=== PATIENT | male | born 1965 | race Caucasian/White ===

== ENCOUNTER 2021-04-12 14:38 | Inpatient (IN) ==
[2021-04-12] MEDS ORDERED: dexAMETHasone**PF** 10 MG/ML VIAL IV ONE (15:11)
[2021-04-12] MEDS ORDERED: IPRATROPIUM BROMIDE/ALBUTEROL respimat INH INH STA (15:11)
[2021-04-12] MEDS ORDERED: SODIUM CHLORIDE 0.9% 1000ML 2,000 ML IV ONE (15:11)
[2021-04-12] MEDS ORDERED: ACETAMINOPHEN 1,000 MG/100 ML VIAL IV STA (15:11)
[2021-04-12 15:39] LABS: Hematocrit (blood only) 38.8 % (42-52); Hemoglobin 13.5 g/dL (14.0-18.0); Mean Corpuscular Hemoglobin 30.2 pg (25-34); Mean Corpuscular Hgb Conc 34.8 g/dL (32-36); Mean Corpuscular Volume 86.8 fL (80-100); Mean Platelet Volume 9.8 fL (7.4-10.4); Platelet Count 352 K/uL (130-400); RDW Coefficient of Variation 13.4 % (11.5-14.5); RDW Standard Deviation 42.9 fL (36.4-46.3); Red Blood Count 4.47 M/uL (4.7-6.1); White Blood Count 6.43 K/uL (4.8-10.8)
[2021-04-12 15:40] LABS: INR 1.2 (0.9-1.1); Prothrombin Time 11.9 Seconds (9.0-12.0)
--- NOTE | 2021-04-12 15:47 | XRay Report ---
XR chest 1V portable HISTORY: Atypical Chest Pain COMPARISON: None. FINDINGS: There are low lung volumes. The heart is mildly enlarged. No pleural effusions. No pneumoth orax. There are hazy peripheral airspace opacities seen within the bilateral mid to lower lung zones consistent with a moderate viral pneumonia. IMPRESSION: Bilateral hazy airspace opacities within the mid to lower lung zones consistent with a viral pneumoni a. ACT 112: Negative or not required by law. Electronically signed by: Jorge Snyder M.D. 04/12/2021 3:46 PM
[2021-04-12 16:10] LABS: Alanine Aminotransferase 31 (12-78); Albumin Globulin Ratio 0.6 (0.9-2); Albumin Level 2.4 gm/dl (3.4-5.0); Alkaline Phosphatase 59 U/L (45-117); Aspartate Aminotransferase 31 U/L (15-37); BUN Creatinine Ratio 21.6 (10-20); Bilirubin,Total 0.8 mg/dl (0.2-1); Blood Urea Nitrogen 25 mg/dl (7-18); Calcium 8.8 mg/dl (8.5-10.1); Carbon Dioxide 20 mmol/L (21-32); Chloride 93 mmol/L (98-107); Creatinine Clr Calc Pharmacy 57.9 ml/min; Est GFR (African American) 81.7 ml/min; Est GFR (Non-African American) 70.5 ml/min; Globulin 4.2 gm/dl (2.5-4.0); Glucose 459 mg/dl (70-99); Lipase 169 U/L (73-393); Magnesium 2.7 mg/dl (1.8-2.4); NT Pro B Type Natriuretic Pept 161 pg/ml (0-900); Phosphorus 3.1 mg/dl (2.5-4.9); Sodium 129 mmol/L (136-145); Total Protein 6.6 gm/dl (6.4-8.2); Troponin I < 0.015 ng/ml (0-0.045)
[2021-04-12 16:19] LABS: Basophils # (auto) 0.01 K/uL (0-0.2); Basophils % (auto) 0.2 %; Echinocytes 1+; Eosinophils # (auto) 0.01 K/uL (0-0.5); Eosinophils % (auto) 0.2 %; Immature Granulocytes # (auto) 0.01 K/uL (0.00-0.02); Immature Granulocytes % (auto) 0.2 %; Lymphocytes % (auto) 7.8 %; Monocytes # (auto) 0.13 K/uL (0.11-0.59); Neutrophils # (auto) 5.77 K/uL (1.4-6.5); Neutrophils % (auto) 89.6 %
[2021-04-12 16:23] LABS: Beta-Hydroxybutyrate 41.78 mg/dl (0.2-2.81)
[2021-04-12 16:28] LABS: Influenza A virus by PCR Negative (Neg); Influenza B virus by PCR Negative (Neg); RSV by PCR Negative (Neg)
[2021-04-12 16:38] LABS: SARS CoV2 RNA(COVID-19) InHosp POSITIVE (Negative)
--- NOTE | 2021-04-12 16:53 | Emergency Department Note ---
Impression & Plan Acute respiratory failure with hypoxia, Pneumonia due to COVID-19 virus, Hyperglycemia due to type 2 diabetes mellitus, Dehydration ED Provider Note NAME: GREY VILLA AGE: 55 SEX: M ARRIVES VIA: Walk-In INFORMANT: Patient ED PROVIDER(S): Napoleon Bosch MD CHIEF COMPLAINT: Shortness of breath; Referred. PLAN: Disposition: Admit MEDICAL DECISION MAKING: The patient is a pleasant 55-year-old gentleman with a past medical history of NIDDM 2 who presents to the emergency department referred from his outpatient providers office for worsening shortness of breath and hypoxia in the setting of being diagnosed with COVID-19. 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 Reports feeling feverish, body aches, nausea. He denies diarrhea. He is a non-smoker. He is not vaccinated for COVID-19. He did get his flu vaccine last week prior to the onset of his symptoms. On arrival the patient is uncomfortable and ill-appearing but no acute distress, afebrile with O2 saturation 79% on room air and tachypneic in the upper 20s. O2 saturation did improve to the low mid 90s on Oxy mask. Patient appears clinically dry. He has intermittent wheezes and rhonchi. Abdomen is benign. EKG without overt acute ischemia. CXR with bilateral airspace opacities c/w viral PNA. WBC and platelets wnl. H/H 13.5/38.8 without prior for comparison. Glucose 459 but with Chemistry without significant acidosis with bicarbonate of 20. BHB 40s however VBG without acidemia. Sodium corrects to 135-138. Otherwise, electrolytes without significant abnormalities. Serum Osms 297 and so HHS unlikely. LFTs without significant abnormality. Troponin negative/undetectable. Lipase is not elevated. Covid-19 PCR is positive. Repeat BSG after IVF hydration improved to 370s. HHS and DKA unlikely at this time. Results suggest ketosis without acidosis in the setting of dehydration. Further glycemic management per admitting team. Nilay Paula PAC, with Dr. Gino Pemberton hospitalist who will evaluate the patient for admission. Triage Nursing notes reviewed and agree them. Prior medical records reviewed Vital Signs: reviewed and remarkable for hypoxia, tachypnea. Differential diagnosis: Reactive airway disease, pneumonia, pneumothorax, COPD, CHF, infections, cardiac ischemia, pulmonary embolism, musculoskeletal, gastrointestinal, as well as other pathologies. ER treatment provided: See below. Diagnostics interpreted by me: ECG: NSR, 88 bpm, no ectopy, no overt ST elevation or depression. Cardiac Monitoring: An order for continuous cardiac monitoring was placed and demonstrated NSR, 88 bpm, no ectopy. Laboratory studies: See below Imaging studies: See below Consultation(s): Nilay Paula PAC, with Dr. Gino Pemberton hospitalist who will evaluate the patient for admission. HPI: The patient is a pleasant 55-year-old gentleman with a past medical history of NIDDM 2 who presents to the emergency department referred from his outpatient providers office for worsening shortness of breath and hypoxia in the setting of being diagnosed with COVID-19. 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 Reports feeling feverish, body aches, nausea. He denies diarrhea. He is a non-smoker. He is not vaccinated for COVID-19. He did get his flu vaccine last week prior to the onset of his symptoms. ROS: See above HPI for pertinent positives & negatives. A total of 10 systems reviewed and were otherwise negative. PAST MEDICAL HISTORY:See Below PAST SURGICAL HISTORY:See Below FAMILY HISTORY:See Below SOCIAL HISTORY:See Below HOME MEDICATIONS:See Below ALLERGIES:See Below VITALS:See Below PHYSICAL EXAMINATION: GENERAL: Awake, alert, ill-appearing, in no distress HENT: Normocephalic, atraumatic. Oropharynx with dry mucous membranes and other romero unremarkable. EYES: Normal conjunctiva. Sclera non-icteric. NECK: Supple. No nuchal rigidity. FROM. No JVD. RESPIRATORY: Intermittent wheezes and rhonchi. Mild increased WOB but in NAD. CARDIAC: Regular rate, normal rhythm. Extremities warm and well perfused. Pulses equal. ABDOMEN: Soft, non-distended. No tenderness to palpation. No rebound or guarding. No masses. RECTAL: Deferred. MUSCULOSKELETAL: Chest examination reveals no tenderness. The back is symmetrical on inspection without obvious abnormality. There is no CVA tenderness to palpation. No joint edema. LOWER EXTREMITIES: Calves are equal size bilaterally and non-tender. No edema. No discoloration. NEURO: Normal sensorium. No sensory or motor deficits noted. SKIN: No rash or jaundice noted. ED COURSE: Critical Care: I have personally spent greater than 55 minutes of critical care time in the direct management of this patient. This includes bedside care, interpretation of diagnostic studies, and testing, discussion with consultants, patient, and family members, and other required patient management activities. This 55 minutes is in excess of all separately billable procedures. 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 Beliefs That Will Affect Care: None Current Living Situation: Alone Other Information That Helps Us Care for You: No Feels Safe at Home: Yes Assistive Devices: Glasses Home Meds Home Medications Medication Instructions Recorded Confirmed albuterol sulfate 90 mcg/actuation 2 puff INHALATION DAILY 04/12/21 04/12/21 aerosol inhaler glyburide 5 mg tablet 5 mg PO DAILY 04/12/21 04/12/21 lisinopril 5 mg tablet 5 mg PO DAILY 04/12/21 04/12/21 metformin 1,000 mg tablet 1,000 mg PO DAILY 04/12/21 04/12/21 metoprolol tartrate 25 mg tablet 12.5 mg PO BID 04/12/21 04/12/21 Results & Data (ED) Vital Signs Vital Signs - 24 hr 04/12/21 14:59 04/12/21 15:01 04/12/21 15:08 Temperature 36.4 C L Temperature Source Oral Pulse Rate 90 90 85 Pulse Rate from SpO2 Sensor 91 H Pulse Rhythm Regular Pulse Strength Normal Respiratory Rate 24 31 H 25 H Respiratory Effort / Characteristics Spontaneous Respiratory Depth Normal Respiratory Pattern Regular Blood Pressure 130/88 Blood Pressure Mean 102 Blood Pressure Position Semi-fowlers Pulse Oximetry 95 79 L Oxygen Delivery Method Room Air Oxymask Oxygen Flow Rate 0 Sepsis New/Unexplained Change in Mental Status No Sepsis Action Taken by Nursing No Action Required Oxygen Flow Rate - Titration 4 Pulse Oximetry Post Tiitration 98 04/12/21 15:30 04/12/21 16:00 04/12/21 16:30 Temperature Temperature Source Pulse Rate 85 86 76 Pulse Rate from SpO2 Sensor 86 80 79 Pulse Rhythm Pulse Strength Respiratory Rate 31 H 19 32 H Respiratory Effort / Characteristics Respiratory Depth Respiratory Pattern Blood Pressure 132/85 125/83 108/74 Blood Pressure Mean 100 97 85 Blood Pressure Position Pulse Oximetry 98 96 94 Oxygen Delivery Method Oxygen Flow Rate Sepsis New/Unexplained Change in Mental Status Sepsis Action Taken by Nursing Oxygen Flow Rate - Titration Pulse Oximetry Post Tiitration 04/12/21 17:00 Temperature Temperature Source Pulse Rate 77 Pulse Rate from SpO2 Sensor 77 Pulse Rhythm Pulse Strength Respiratory Rate 29 H Respiratory Effort / Characteristics Respiratory Depth Respiratory Pattern Blood Pressure 110/70 Blood Pressure Mean 83 Blood Pressure Position Pulse Oximetry 98 Oxygen Delivery Method Oxygen Flow Rate Sepsis New/Unexplained Change in Mental Status Sepsis Action Taken by Nursing Oxygen Flow Rate - Titration Pulse Oximetry Post Tiitration Laboratory Data Attestation: I reviewed the patient's lab results. Result diagrams: 04/12/21 15:20 04/12/21 18:22 Lab Results 04/12/21 04/12/21 04/12/21 Range/Units 15:20 15:20 15:20 WBC 6.43 (4.8-10.8) K/uL RBC 4.47 L (4.7-6.1) M/uL Hgb 13.5 L (14.0-18.0) g/dL Hct 38.8 L (42-52) % MCV 86.8 (80-100) fL MCH 30.2 (25-34) pg MCHC 34.8 (32-36) g/dL RDW Std Deviation 42.9 (36.4-46.3) fL RDW Coeff of Chet 13.4 (11.5-14.5) % Plt Count 352 (130-400) K/uL MPV 9.8 (7.4-10.4) fL Immature Gran % (Auto) 0.2 % Neut % (Auto) 89.6 % Lymph % (Auto) 7.8 % [place] % (Auto) 2.0 % Eos % (Auto) 0.2 % Baso % (Auto) 0.2 % Neut # (Auto) 5.77 (1.4-6.5) K/uL Lymph # (Auto) 0.50 L (1.2-3.4) K/uL [place] # (Auto) 0.13 (0.11-0.59) K/uL Eos # (Auto) 0.01 (0-0.5) K/uL Baso # (Auto) 0.01 (0-0.2) K/uL Immature Gran # (Auto) 0.01 (0.00-0.02) K/uL Echinocytes 1+ PT 11.9 (9.0-12.0) Seconds INR 1.2 H (0.9-1.1) VBG pH (7.36-7.41) VBG pCO2 (38-50) mmHg VBG pO2 mmHg VBG HCO3 mmol/L VBG O2 Saturation % VBG Base Excess mEq/L Barometric Pressure mm/Hg Sodium 129 L (136-145) mmol/L Potassium 4.0 (3.5-5.1) mmol/L Chloride 93 L (98-107) mmol/L Carbon Dioxide 20 L (21-32) mmol/L Anion Gap 16.0 H (3-11) BUN 25 H (7-18) mg/dl Creatinine 1.16 (0.6-1.4) mg/dl Est Cr Clr Drug Dosing 57.9 ml/min Est GFR ( Amer) 81.7 ml/min Est GFR (Non-Af Amer) 70.5 ml/min BUN/Creatinine Ratio 21.6 H (10-20) Glucose 459 H* (70-99) mg/dl POC Glucose (70-99) mg/dl Osmolality (280-300) mOsm/kg Calcium 8.8 (8.5-10.1) mg/dl Phosphorus 3.1 (2.5-4.9) mg/dl Magnesium 2.7 H (1.8-2.4) mg/dl Total Bilirubin 0.8 (0.2-1) mg/dl AST 31 (15-37) U/L ALT 31 (12-78) Alkaline Phosphatase 59 (45-117) U/L Troponin I < 0.015 (0-0.045) ng/ml C-Reactive Protein 21.80 H (0-0.29) mg/dl NT-Pro-B Natriuret Pep 161 (0-900) pg/ml Total Protein 6.6 (6.4-8.2) gm/dl Albumin 2.4 L (3.4-5.0) gm/dl Globulin 4.2 H (2.5-4.0) gm/dl Albumin/Globulin Ratio 0.6 L (0.9-2) Lipase 169 (73-393) U/L Beta-Hydroxybutyric Acd 41.78 H (0.2-2.81) mg/dl SARS-CoV-2 (PCR) (Negative) Influenza Type A (PCR) (Neg) Influenza Type B (PCR) (Neg) RSV (RT-PCR) (Neg) 04/12/21 04/12/21 04/12/21 Range/Units 15:20 15:20 16:54 WBC (4.8-10.8) K/uL RBC (4.7-6.1) M/uL Hgb (14.0-18.0) g/dL Hct (42-52) % MCV (80-100) fL MCH (25-34) pg MCHC (32-36) g/dL RDW Std Deviation (36.4-46.3) fL RDW Coeff of Chet (11.5-14.5) % Plt Count (130-400) K/uL MPV (7.4-10.4) fL Immature Gran % (Auto) % Neut % (Auto) % Lymph % (Auto) % [place] % (Auto) % Eos % (Auto) % Baso % (Auto) % Neut # (Auto) (1.4-6.5) K/uL Lymph # (Auto) (1.2-3.4) K/uL [place] # (Auto) (0.11-0.59) K/uL Eos # (Auto) (0-0.5) K/uL Baso # (Auto) (0-0.2) K/uL Immature Gran # (Auto) (0.00-0.02) K/uL Echinocytes PT (9.0-12.0) Seconds INR (0.9-1.1) VBG pH 7.42 H (7.36-7.41) VBG pCO2 34 L (38-50) mmHg VBG pO2 44 mmHg VBG HCO3 21 mmol/L VBG O2 Saturation 79.3 % VBG Base Excess -2.7 mEq/L Barometric Pressure 729.2 mm/Hg Sodium (136-145) mmol/L Potassium (3.5-5.1) mmol/L Chloride (98-107) mmol/L Carbon Dioxide (21-32) mmol/L Anion Gap (3-11) BUN (7-18) mg/dl Creatinine (0.6-1.4) mg/dl Est Cr Clr Drug Dosing ml/min Est GFR ( Amer) ml/min Est GFR (Non-Af Amer) ml/min BUN/Creatinine Ratio (10-20) Glucose (70-99) mg/dl POC Glucose (70-99) mg/dl Osmolality 297 (280-300) mOsm/kg Calcium (8.5-10.1) mg/dl Phosphorus (2.5-4.9) mg/dl Magnesium (1.8-2.4) mg/dl Total Bilirubin (0.2-1) mg/dl AST (15-37) U/L ALT (12-78) Alkaline Phosphatase (45-117) U/L Troponin I (0-0.045) ng/ml C-Reactive Protein (0-0.29) mg/dl NT-Pro-B Natriuret Pep (0-900) pg/ml Total Protein (6.4-8.2) gm/dl Albumin (3.4-5.0) gm/dl Globulin (2.5-4.0) gm/dl Albumin/Globulin Ratio (0.9-2) Lipase (73-393) U/L Beta-Hydroxybutyric Acd (0.2-2.81) mg/dl SARS-CoV-2 (PCR) POSITIVE A* (Negative) Influenza Type A (PCR) Negative (Neg) Influenza Type B (PCR) Negative (Neg) RSV (RT-PCR) Negative (Neg) 04/12/21 Range/Units 17:15 WBC (4.8-10.8) K/uL RBC (4.7-6.1) M/uL Hgb (14.0-18.0) g/dL Hct (42-52) % MCV (80-100) fL MCH (25-34) pg MCHC (32-36) g/dL RDW Std Deviation (36.4-46.3) fL RDW Coeff of Chet (11.5-14.5) % Plt Count (130-400) K/uL MPV (7.4-10.4) fL Immature Gran % (Auto) % Neut % (Auto) % Lymph % (Auto) % [place] % (Auto) % Eos % (Auto) % Baso % (Auto) % Neut # (Auto) (1.4-6.5) K/uL Lymph # (Auto) (1.2-3.4) K/uL [place] # (Auto) (0.11-0.59) K/uL Eos # (Auto) (0-0.5) K/uL Baso # (Auto) (0-0.2) K/uL Immature Gran # (Auto) (0.00-0.02) K/uL Echinocytes PT (9.0-12.0) Seconds INR (0.9-1.1) VBG pH (7.36-7.41) VBG pCO2 (38-50) mmHg VBG pO2 mmHg VBG HCO3 mmol/L VBG O2 Saturation % VBG Base Excess mEq/L Barometric Pressure mm/Hg Sodium (136-145) mmol/L Potassium (3.5-5.1) mmol/L Chloride (98-107) mmol/L Carbon Dioxide (21-32) mmol/L Anion Gap (3-11) BUN (7-18) mg/dl Creatinine (0.6-1.4) mg/dl Est Cr Clr Drug Dosing ml/min Est GFR ( Amer) ml/min Est GFR (Non-Af Amer) ml/min BUN/Creatinine Ratio (10-20) Glucose (70-99) mg/dl POC Glucose 370 H* (70-99) mg/dl Osmolality (280-300) mOsm/kg Calcium (8.5-10.1) mg/dl Phosphorus (2.5-4.9) mg/dl Magnesium (1.8-2.4) mg/dl Total Bilirubin (0.2-1) mg/dl AST (15-37) U/L ALT (12-78) Alkaline Phosphatase (45-117) U/L Troponin I (0-0.045) ng/ml C-Reactive Protein (0-0.29) mg/dl NT-Pro-B Natriuret Pep (0-900) pg/ml Total Protein (6.4-8.2) gm/dl Albumin (3.4-5.0) gm/dl Globulin (2.5-4.0) gm/dl Albumin/Globulin Ratio (0.9-2) Lipase (73-393) U/L Beta-Hydroxybutyric Acd (0.2-2.81) mg/dl SARS-CoV-2 (PCR) (Negative) Influenza Type A (PCR) (Neg) Influenza Type B (PCR) (Neg) RSV (RT-PCR) (Neg) Administered Medications Benzonatate (Benzonatate 100 Mg Capsule) 100 mg PO TID [facility] Stop: 05/12/21 21:29 Last Admin: 04/12/21 22:12 Dose: 100 mg Documented by: [id number] Guaifenesin (Guaifenesin 600 Mg Tabcr) 1,200 mg PO Q12 SUHA Stop: 05/12/21 21:29 Last Admin: 04/12/21 22:13 Dose: 1,200 mg Documented by: [id number] Potassium Chloride/Sodium Chloride (Normal Saline W/20 Meq Kcl) 20 meq in 1,000 mls @ 150 mls/hr IV .Q6H40M [facility] Stop: 05/12/21 20:14 Last Admin: 04/12/21 22:57 Dose: 150 mls/hr Documented by: [id number] Insulin Human Regular 250 (units/ Sodium Chloride) 250 mls @ 2.3 mls/hr IV .Q24H [facility]; Protocol Stop: 05/12/21 22:29 Last Admin: 04/12/21 23:09 Dose: 2.3 units/hr, 2.3 mls/hr Documented by: [id number] Cosigned by: [id number] Sodium Chloride (Sodium Chloride 0.9% 10ml Flush) 30 ml IV DAILY@2100 SUHA Stop: 04/16/21 21:01 Last Admin: 04/12/21 20:30 Dose: 30 ml Documented by: [id number] Discontinued Medications Albuterol (Ipratropium [place]/Albuterol Respimat Inh) 2 puffs INH NOW STA Stop: 04/12/21 15:12 Last Admin: 04/12/21 15:55 Dose: 2 puffs Documented by: [id number] Dexamethasone Sodium Phosphate (DexamethasonePf 10 Mg/Ml Vial) 10 mg IV NOW ONE Stop: 04/12/21 15:12 Last Admin: 04/12/21 15:54 Dose: 10 mg Documented by: [id number] Sodium Chloride (Nss 1000ml) 2,000 mls @ 999 mls/hr IV .Q2H1M ONE Stop: 04/12/21 17:11 Last Infusion: 04/12/21 17:19 Dose: 0 mls/hr Documented by: [id number] Admin: 04/12/21 15:55 Dose: 999 mls/hr Documented by: [id number] Acetaminophen (Ofirmev) 1,000 mg in 100 mls @ 400 mls/hr IV NOW STA Stop: 04/12/21 15:25 Last Infusion: 04/12/21 16:20 Dose: 0 mls/hr Documented by: [id number] Admin: 04/12/21 15:54 Dose: 400 mls/hr Documented by: [id number] Remdesivir 200 mg/ Sodium (Chloride) 250 mls @ 125 mls/hr IV ONE ONE; Protocol Stop: 04/12/21 19:59 Last Infusion: 04/12/21 20:30 Dose: 0 mls/hr Documented by: [id number] Admin: 04/12/21 18:30 Dose: 125 mls/hr Documented by: [id number] Insulin Human Regular 7 units/ (Syringe) 7 mls @ 30 mls/min IV NOW ONE Stop: 04/12/21 17:46 Last Admin: 04/12/21 18:09 Dose: 30 mls/min Documented by: [id number] Cosigned by: [id number] Insulin Human Regular 2.5 (units/ Syringe) 2.5 mls @ 30 mls/min IV NOW ONE Stop: 04/12/21 22:31 Last Admin: 04/12/21 22:59 Dose: 30 mls/min Documented by: [id number] Cosigned by: [id number] Insulin Aspart (Insulin Aspart Per Unit) 0 units SC ACHS SUHA Stop: 05/12/21 17:44 Last Admin: 04/12/21 19:42 Dose: 22 units Documented by: [id number] Cosigned by: [id number] Insulin Human NPH (Novolin-N (Nph) Per Unit Charge) 25 units SQ ONE ONE Stop: 04/12/21 18:01 Last Admin: 04/12/21 19:43 Dose: 25 units Documented by: [id number] Cosigned by: [id number] Imaging Data Radiologist's Impression: Chest X-Ray 04/12/21 15:10 XR chest 1V portable HISTORY: Atypical Chest Pain COMPARISON: None. FINDINGS: There are low lung volumes. The heart is mildly enlarged. No pleural effusions. No pneumothorax. There are hazy peripheral airspace opacities seen within the bilateral mid to lower lung zones consistent with a moderate viral pneumonia. IMPRESSION: Bilateral hazy airspace opacities within the mid to lower lung zones consistent with a viral pneumonia. ACT 112: Negative or not required by law. Electronically signed by: Jorge Snyder M.D. 04/12/2021 3:46 PM Discharge Plan Visit Data Chief Complaint: Shortness of Breath/Dyspnea Stated Complaint: SOB, FEVER, COVID+ ED Provider: Napoleon Bosch Discharge Problem: Acute respiratory failure with hypoxia, Pneumonia due to COVID-19 virus, Hyperglycemia due to type 2 diabetes mellitus, Dehydration Patient Disposition: Admitted As Inpatient Discharge Instructions Interventions: ED Discharge Assessment Last Done: 04/12/21 20:31 Discharge Problem: Hyperglycemia due to type 2 diabetes mellitus Qualifiers: Diabetes mellitus roasterman insulin use: without fdc use Qualified Code(s): E11.65 - Type 2 diabetes mellitus with hyperglycemia
[2021-04-12 17:07] LABS: Base Excess VBG -2.7 mEq/L; Oxygen Saturation VBG 79.3 %; pH VBG 7.42 (7.36-7.41)
--- NOTE | 2021-04-12 17:18 | History & Physical Report ---
Date of Service April 12, 2021 Assessment & Plan (1) Pneumonia due to COVID-19 virus: (2) Hyperglycemia due to type 2 diabetes mellitus: (3) Hyponatremia: (4) Dehydration: (5) HTN (hypertension): (6) HLD (hyperlipidemia): (7) CAD (coronary artery disease): (8) DVT prophylaxis: Plan: Patient will be admitted to telemetry, will be given dexamethasone IV as well as remdesivir, oxygen to maintain sats between 90-94%, he will be given IV fluids, DVT prophylaxis with subcu Lovenox, continue outpatient medications where appropriate, albuterol inhalers, corrected sodium is 135. Patient will be placed on twice daily Lantus with every 4 hour sliding scale and an insulin bolus short acting was given. Patient was counseled to prone. History of Present Illness Chief Complaint: SOB Primary Care Provider: NO PCP 55-year-old gentleman with a past medical history of NIDDM 2 who presents emergency department referred from his outpatient providers office for worsening shortness of breath and hypoxia in the setting of being diagnosed with COVID- 19. 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 Reports feeling feverish, body aches, nausea. He denies diarrhea. He is a non-smoker. He is not vaccinated for COVID-19. He did get his flu vaccine last week prior to the onset of his symptoms and after that got symptoms of flu. In the ER he was 79% on room air and tachypneic in the upper 20s. O2 saturation did improve to the low mid 90s on oxygen mask. Patient appears clinically dry. He was found to have a sodium of 128 which corrects to 135 and a bicarbonate of 20. His blood sugar was 459. He was given Tylenol albuterol dexamethasone and 2 L of fluid in the ER. Patient notes nausea and vomiting for couple days. Patient did not have an appetite for days, and los s senses of taste and smell. Patient at work was also positive for Covid. He was not taking his blood sugar medications for 2 weeks. Past medical historyType 2 diabetes, Asthma, CAD c Stent, HTN, HLD Past surgical historyHeart Stent. Social historyWorks at the [employer], single, No T/D/Alcohol Family historyFather c Heart Disease, CABG, Mother Healthy, Brother c DM, Sister healthy Meds-Lisinopril, and as below Home Medications Medication Instructions Recorded Confirmed Type albuterol sulfate 90 mcg/actuation 2 puff INHALATION DAILY 04/12/21 04/12/21 History aerosol inhaler glyburide 5 mg tablet 5 mg PO DAILY 04/12/21 04/12/21 History lisinopril 5 mg tablet 5 mg PO DAILY 04/12/21 04/12/21 History metformin 1,000 mg tablet 1,000 mg PO DAILY 04/12/21 04/12/21 History metoprolol tartrate 25 mg tablet 12.5 mg PO BID 04/12/21 04/12/21 History Past Med/Surg History Social History Smoking Status: Never smoker Preferred Language: [place] Feels Safe at Home: Yes Physical Exam Physical Exam: ROS-No Headache, No Visual Changes, +Nausea, +Vomiting, very thirsty, no Fever, positive chills, No Neck Pain, positive Stiffness, No Chest Pain, No Palpitations, positive SOB, positive NEGRETE, positive cough, No Sputum, No Wheezing, No Abdominal Pain, No Diarrhea, No Hematemesis, No Hemoptysis, No Unexpected Weight Loss, No Flank pain, No Melena, No Hematochezia, No Frequency, No Urgency, No Burning, No Hematuria, No Rashes, No Diaphoresis. Appetite is Normal Physical Exam Gen-AAO x 3, NAD, Afebrile Head-NCAT, EOMI, PERRLA, Anicteric Sclera, No Posterior Pharyngeal Erythema Neck-Supple, No JVD, No Thyromegaly, No Masses, No LAD, No Bruits Lungs-Clear to Auscultation Bilaterally, No Rales, No Rhonchi, No Wheezing, No Crepitus Chest-No S4, +S1, +S2, No S3, No Murmurs, No Rubs, No Gallops, No Ectopy Abdomen-Soft, Bowel Sounds Present, Non Tender, Non Distended, No Hepatomegaly, No Splenomegaly, No Palpable Masses, No Rebound, No Rigidity, No Guarding Musculoskeletal-Full Range of Motion Bilaterally, No CVAT Extremities-No Cyanosis, No Clubbing, No Edema Nuero-Cranial Nerves II-XII grossly intact, Motor WNL, DTRs WNL, Strength WNL, Non Focal Psych-Normal Mood Results & Data Results & Data ([facility]) Vital Signs (Past 12 Hours) Vital Signs Temp Pulse Resp BP Pulse Ox 04/12/21 15:08 36.4 C L 85 25 H 130/88 79 L Laboratory Results Height/Weight/Isolation Height 5 ft 3 in Weight 62.9 kg Isolation Type Airborne Precautions Chemistry 04/12/21 15:20 Sodium 129 L Potassium 4.0 Chloride 93 L Carbon Dioxide 20 L Anion Gap 16.0 H BUN 25 H Creatinine 1.16 Glucose 459 H* Diagnostic Findings CXR-Bilateral hazy airspace opacities within the mid to lower lung zones consistent with a viral pneumonia. Code Status & VTE Plan Code Status Full
[2021-04-12] MEDS ORDERED: GLUCOSE 40% GEL 15 GM TUBE PO PRN (17:20)
[2021-04-12] MEDS ORDERED: PHARMACY GLYCEMIC MGMT CONSULT PRN (17:20)
[2021-04-12] MEDS ORDERED: DEXTROSE 50% 50 ML SYRINGE IV PRN (17:20)
[2021-04-12] MEDS ORDERED: GLUCOSE 10 TABS/TUBE PO PRN (17:20)
[2021-04-12] MEDS ORDERED: GLUCAGON FOR INJ 1 MG VIAL SQ PRN (17:20)
[2021-04-12] MEDS ORDERED: INSULIN ASPART PER UNIT SC STA (17:21)
[2021-04-12] MEDS ORDERED: INSULIN HUMAN REGULAR PER UNIT 7 UNITS in SYRINGE 6.93 ML IV ONE ×2 (17:45→22:00)
[2021-04-12] MEDS ORDERED: NovoLIN-N (NPH) PER UNIT CHARGE SQ ONE (18:00)
[2021-04-12] MEDS ORDERED: REMDESIVIR 200 MG in SODIUM CHLORIDE 0.9% 210 ML IV ONE (18:00)
[2021-04-12 18:51] LABS: BUN Creatinine Ratio 22.2 (10-20); Calcium 7.9 mg/dl (8.5-10.1); Creatinine Clr Calc Pharmacy 65.9 ml/min; Est GFR (African American) 95.5 ml/min; Est GFR (Non-African American) 82.4 ml/min; Potassium 3.9 mmol/L (3.5-5.1)
[2021-04-12 19:03] LABS: Beta-Hydroxybutyrate 33.51 mg/dl (0.2-2.81)
[2021-04-12] MEDS: INSULIN ASPART PER UNIT SC SCH (19:42)
[2021-04-12] MEDS: SODIUM CHLORIDE 0.9% 10ML FLUSH IV SCH (20:30)
[2021-04-12] MEDS ORDERED: ONDANSETRON INJ 2 MG/ML 2 ML VIAL IV PRN (20:56)
[2021-04-12] MEDS ORDERED: LANTUS PER UNIT CHARGE SQ SCH (21:00)
[2021-04-12] MEDS ORDERED: INSULIN ASPART PER UNIT SC SCH (21:00)
[2021-04-12] MEDS ORDERED: STAT IV Infusion **Titration per Protocol STA (22:10)
[2021-04-12] MEDS ORDERED: INSULIN PROTOCOL GOAL RANGE ONE (22:10)
[2021-04-12] MEDS ORDERED: SEVERE STRESS LEVEL ONE (22:10)
[2021-04-12] MEDS: BENZONATATE 100 MG CAPSULE PO SCH (22:12)
[2021-04-12] MEDS: guaiFENesin 600 MG TABCR PO SCH (22:13)
[2021-04-12] MEDS ORDERED: INSULIN REGULAR 250 UNITS in SODIUM CHLORIDE 0.9% 247.5 ML IV SCH (22:30)
[2021-04-12] MEDS ORDERED: INSULIN HUMAN REGULAR PER UNIT 2.5 UNITS in SYRINGE 2.475 ML IV ONE (22:30)
[2021-04-12] MEDS: NSS + 20MEQ KCL 20 MEQ/1,000 ML BAG IV SCH (22:57)
[2021-04-13] MEDS ORDERED: INSULIN ASPART PER UNIT SC SCH
[2021-04-13 00:44] LABS: BUN Creatinine Ratio 22.6 (10-20); Calcium 8.3 mg/dl (8.5-10.1); Est GFR (African American) 92.2 ml/min; Est GFR (Non-African American) 79.5 ml/min; Potassium 3.4 mmol/L (3.5-5.1)
[2021-04-13 01:02] LABS: Beta-Hydroxybutyrate 2.53 mg/dl (0.2-2.81)
[2021-04-13] MEDS: NSS + 20MEQ KCL 20 MEQ/1,000 ML BAG IV SCH ×3 (05:33→20:57)
[2021-04-13 07:56] LABS: Hematocrit (blood only) 37.3 % (42-52); Hemoglobin 12.5 g/dL (14.0-18.0); Mean Corpuscular Hemoglobin 29.4 pg (25-34); Mean Corpuscular Hgb Conc 33.5 g/dL (32-36); Mean Corpuscular Volume 87.8 fL (80-100); Mean Platelet Volume 9.8 fL (7.4-10.4); Platelet Count 269 K/uL (130-400); RDW Coefficient of Variation 13.8 % (11.5-14.5); RDW Standard Deviation 44.2 fL (36.4-46.3); Red Blood Count 4.25 M/uL (4.7-6.1); White Blood Count 8.63 K/uL (4.8-10.8)
[2021-04-13] MEDS ORDERED: INSULIN GLARGINE SOLOSTAR 100 UNITS/ML 3 ML PEN SC ONE (08:00)
[2021-04-13 08:10] LABS: Estimated Average Glucose 306 mg/dl; Hemoglobin A1C 12.3 % (4.5-5.6)
[2021-04-13 08:31] LABS: Albumin Globulin Ratio 0.5 (0.9-2); Albumin Level 1.9 gm/dl (3.4-5.0); BUN Creatinine Ratio 25.6 (10-20); Bilirubin,Total 0.4 mg/dl (0.2-1); Calcium 8.2 mg/dl (8.5-10.1); Creatinine Clr Calc Pharmacy 81.9 ml/min; Est GFR (African American) 115.4 ml/min; Est GFR (Non-African American) 99.6 ml/min; Globulin 3.7 gm/dl (2.5-4.0); Potassium 3.7 mmol/L (3.5-5.1); Total Protein 5.6 gm/dl (6.4-8.2)
[2021-04-13] MEDS: BENZONATATE 100 MG CAPSULE PO SCH ×3 (08:58→20:58)
[2021-04-13] MEDS: dexAMETHasone 6 MG in SYRINGE 0 ML IV SCH (08:58)
[2021-04-13] MEDS: guaiFENesin 600 MG TABCR PO SCH ×2 (08:59→20:58)
[2021-04-13] MEDS: ENOXAPARIN INJ 40 MG/0.4 ML SYR SQ SCH (09:00)
[2021-04-13] MEDS: INSULIN HUMAN NPH SC SCH (09:03)
[2021-04-13] MEDS: INSULIN ASPART PER UNIT SC SCH ×5 (09:05→20:59)
[2021-04-13] MEDS: ALBUTEROL HFA 8 GM INHALER INH SCH ×2 (09:35→12:01)
[2021-04-13] MEDS ORDERED: ALBUTEROL HFA 8 GM INHALER INH PRN (11:30)
--- NOTE | 2021-04-13 13:05 | Hospitalist Progress Note ---
Date of Service April 13, 2021 Assessment & Plan (1) Pneumonia due to COVID-19 virus: (2) Hyperglycemia due to type 2 diabetes mellitus: (3) Hyponatremia: (4) HTN (hypertension): (5) HLD (hyperlipidemia): (6) CAD (coronary artery disease): (7) DVT prophylaxis: Plan: 55-year-old gentleman with a past medical history of NIDDM 2, HLD, HTN who presented 04/12 to ED, referred from his outpatient providers office for worsening shortness of breath and hypoxia in the setting of being diagnosed with COVID-19. Is being managed for the following: #. Covid pneumonia #. 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 Prior to presentation, reports feeling feverish, body aches, decreased appetite, diarrhea, shortness of breath. Patient was saturating at 79% on room air in the ER. Vaccine status/month: Not vaccinated; S/S : A week ago MID LEVEL JAVA DEVELOPER Tested Positive: On the week of arrival Admitting pro-Dharmesh: n/a, no signs of infection, clear sputum with cough. Admitting imaging: CXR suggestive of viral pneumonia. Clinically, patient on 4 L nasal cannula oxygen, with occasional dry coughs, reports improving appetite/diarrhea/cough. Encourage every hour incentive spirometer/flutter valve/self proning as able Tessalon Perles and Mucinex for cough BNP: 161; Strict I's and O's; as needed IV Lasix; monitor BMP Monitor LFT daily when on remdesivir; sliding scale and glycemic pharmacy if needed when on steroid. c/w Dexamethasone 04/12 and Remdesivir 04/12. #. Hyponatremia Admitting sodium level of 129, corrected to around 135 Likely secondary to poor appetite preceding admission Resolved. #. DM type II Blood glucose elevated at presentation, A1c of 12.3 at presentation. Monitor blood glucose AC at bedtime, on sliding scale with long-acting We will get critical care educator and glycemic pharmacy for Mx/recommendation. #. Other chronic medical condition: HTN/HLD Resume home meds as appropriate. Full code Lovenox Disposition: Continue to monitor, uncertain at this time. Admission and Anticipated Discharge Date Admission Date: April 12, 2021 Subjective Patient was sitting up in chair, on 4 L nasal cannula oxygen, NAD, no new acute events overnight. Patient reports cough, diarrhea and appetite getting better. He endorses cough with clear sputum. Patient denies any headache/dizziness/chills/chest pain/palpitation/other review of symptoms. Patient counseled about self awake proning, incentive spirometer and flutter valve. Physical Exam Physical Exam: GENERAL: Alert and oriented x3. NAD, on 4L NC. HEENT: No pallor, no icterus. Pupils equal, round and reactive to light. Oral mucosa moist. NECK: No JVD, no neck masses. HEART: S1 and S2 heard. Regular rate and rhythm. No murmur, no gallop. RESPIRATORY SYSTEM: Normal AP diameter. No accessory muscle use. No wheezing, no crackles. Decreased Breath sounds ABDOMEN: Soft, bowel sounds present, nontender, no distention. CENTRAL NERVOUS SYSTEM: No facial droop. Speech is clear. Obeys simple commands. Moves extremities. EXTREMITIES: No edema, no erythema seen. Results & Data Results & Data ([facility]) Vital Signs (Past 12 Hours) Vital Signs Temp Pulse Pulse Resp BP Pulse Ox Pulse Ox 04/13/21 12:00 36.5 C 76 21 105/72 92 04/13/21 11:07 68 04/13/21 10:13 90 04/13/21 08:45 77 18 91 04/13/21 07:08 36.5 C 62 21 110/79 90 04/13/21 03:48 36.9 C 69 20 118/74 90 Pulse Ox Pulse Ox 04/13/21 12:00 04/13/21 11:07 04/13/21 10:13 92 81 L 04/13/21 08:45 04/13/21 07:08 04/13/21 03:48 (1) Hyperglycemia due to type 2 diabetes mellitus Diabetes mellitus fdc insulin use: without intermediate accountant use Qualified Code(s): E11.65 - Type 2 diabetes mellitus with hyperglycemia
[2021-04-13] MEDS ORDERED: BENZONATATE 100 MG CAPSULE PO SCH (14:00)
--- NOTE | 2021-04-13 15:02 | Pharmacy Report ---
Pharmacy Glycemic Short Note 2 - Date of Service April 13, 2021 - Glycemic Short BSG Results (Last 24 hours): 04/12/21 04/12/21 04/12/21 15:20 17:15 18:22 Glucose 459 H* 368 H* POC Glucose 370 H* 04/12/21 04/12/21 04/12/21 19:36 21:21 21:22 Glucose POC Glucose 397 H* 347 H* 351 H* 04/12/21 04/12/21 04/12/21 23:05 23:44 23:54 Glucose 302 H* POC Glucose 342 H* 311 H* 04/13/21 04/13/21 04/13/21 00:48 02:04 03:16 Glucose POC Glucose 255 H 198 H 171 H 04/13/21 04/13/21 04/13/21 03:46 05:35 06:04 Glucose POC Glucose 149 H 79 140 H 04/13/21 04/13/21 04/13/21 06:20 07:44 12:02 Glucose 131 H POC Glucose 148 H 234 H OUTPATIENT ANTIDIABETIC REGIMEN: * METFORMIN 1 GM DAILY, GLYBURIDE 5 MG DAILY * A1C 12.3% 04/13/21 ASSESSMENT: * Patient admitted with COVID-19, BSGs elevated on admission, reportedly has not been taking oral diabetic medications for at least the last two weeks. * Patient was started on NPH and later an insulin infusion for continued elevated blood glucose * Insulin infusion titrated down overnight and was held for approximately two hours this morning when BSGs were 79-140-148 mg/dL * Transitioned to basal/bolus with additional NPH with steroids. PLAN FOR INPATIENT GLYCEMIC CONTROL: * Hold outpatient oral diabetes medications * Basal insulin * Lantus 10 units SQ x1, 10/15 units this evening per scale * NPH 25 units given with dexamethasone to help with steroid induced hyperglycemia * Bolus insulin * NovoLog per scale ACHS or Q6hrs while NPO * Goal Range: Low 110 mg/dL - High 140 mg/dL * Correction Factor: 20 mg/dL/unit * Nutritional / Prandial insulin per carb ratio of 1 unit per 6 grams CHO consumed PLAN FOR DISCHARGE: * tbd
[2021-04-13] MEDS: REMDESIVIR 100 MG in SODIUM CHLORIDE 0.9% 230 ML IV SCH (20:57)
[2021-04-13] MEDS ORDERED: INSULIN GLARGINE SOLOSTAR 100 UNITS/ML 3 ML PEN SC SCH (21:00)
[2021-04-13] MEDS ORDERED: guaiFENesin 600 MG TABCR PO SCH (21:00)
[2021-04-13] MEDS ORDERED: XOPENEX/ATROVENT 1.25mg/0.5MG NEB COMBO NEB STA (21:16)
[2021-04-13] MEDS ORDERED: POTASSIUM CHLORIDE PWD 20 MEQ PACK PO STA (21:18)
[2021-04-13] MEDS ORDERED: IPRATROPIUM BROMIDE NEB SOLN 0.02% 2.5 ML VIAL INH STA (21:21)
[2021-04-13] MEDS ORDERED: PATIENT'S ALLERGY INFO NEEDS ENTERED STA (21:22)
[2021-04-13] MEDS ORDERED: LEVALBUTEROL 1.25MG/0.5ML NEB INH STA (21:22)
[2021-04-13] MEDS ORDERED: methylPREDNISolone 40 MG in SYRINGE 0 ML IV ONE (21:30)
--- NOTE | 2021-04-13 22:15 | Electrocardiogram Report ---
Test Reason : Blood Pressure : / mmHG Vent. Rate : 088 BPM Atrial Rate : 088 BPM P-R Int : 136 ms QRS Dur : 092 ms QT Int : 360 ms P-R-T Axes : 054 039 037 degrees QTc Int : 435 ms Normal sinus rhythm Normal ECG No previous ECGs available Confirmed by Reyes Sharpe ([id number]) on 04/13/2021 10:15:09 PM Referred By: Confirmed By:Reyes Sharpe
--- NOTE | 2021-04-13 22:21 | XRay Report ---
XR chest 1V portable HISTORY: 55 years-old Male low o2 acute hypoxia COMPARISON: 04/12/2021 TECHNIQUE: Portable AP view the chest FINDINGS: Cardiomediastinal and hilar silhouettes are within normal limits. Mildly improved aeration of the kushal gs with decreased mixed interstitial and ill-defined airspace opacities. No pneumothorax or large ple ural effusion. No acute fracture. IMPRESSION: Mildly improved aeration of the lungs. ACT 112: Negative or not required by law. The above report was generated using voice recognition software. It may contain grammatical, syntax o r spelling errors. Electronically signed by: Jimenez Jay M.D. 04/13/2021 10:19 PM
[2021-04-13] MEDS: SODIUM CHLORIDE 0.9% 10ML FLUSH IV SCH (22:50)
[2021-04-13 23:11] LABS: Base Excess ABG -4.5 mEq/L (-9-1.8); HCO3 ABG 19 mmol/L (19-24); Oxygen Saturation ABG 88.5 % (90-95); PCO2 ABG 29 mmHg (35-46); PO2 ABG 52 mmHg (80-95); pH ABG 7.43 (7.35-7.45)
[2021-04-13 23:19] LABS: Allen Test Pos (Pos)
[2021-04-14] MEDS: INSULIN ASPART PER UNIT SC SCH ×6 (02:45→21:31)
[2021-04-14] MEDS: NSS + 20MEQ KCL 20 MEQ/1,000 ML BAG IV SCH (02:45)
[2021-04-14 06:02] LABS: Hematocrit (blood only) 35.6 % (42-52); Hemoglobin 11.9 g/dL (14.0-18.0); Mean Corpuscular Hemoglobin 29.9 pg (25-34); Mean Corpuscular Hgb Conc 33.4 g/dL (32-36); Mean Corpuscular Volume 89.4 fL (80-100); Mean Platelet Volume 10.8 fL (7.4-10.4); Platelet Count 146 K/uL (130-400); RDW Coefficient of Variation 14.2 % (11.5-14.5); RDW Standard Deviation 47.2 fL (36.4-46.3); Red Blood Count 3.98 M/uL (4.7-6.1); White Blood Count 15.09 K/uL (4.8-10.8)
[2021-04-14 06:44] LABS: BUN Creatinine Ratio 26.2 (10-20); Calcium 7.7 mg/dl (8.5-10.1); Creatinine Clr Calc Pharmacy 72.2 ml/min; Est GFR (African American) 106.7 ml/min; Est GFR (Non-African American) 92.1 ml/min; Potassium 4.5 mmol/L (3.5-5.1)
[2021-04-14 06:48] LABS: Albumin Globulin Ratio 0.6 (0.9-2); Bilirubin,Total 0.7 mg/dl (0.2-1); Globulin 3.2 gm/dl (2.5-4.0); Total Protein 5.2 gm/dl (6.4-8.2)
[2021-04-14] MEDS: ALBUTEROL HFA 8 GM INHALER INH SCH (07:18)
[2021-04-14] MEDS ORDERED: FUROSEMIDE INJ 20 MG/2 ML VIAL IV ONE (08:16)
[2021-04-14] MEDS: ENOXAPARIN INJ 40 MG/0.4 ML SYR SQ SCH (08:55)
[2021-04-14] MEDS: guaiFENesin 600 MG TABCR PO SCH ×2 (08:55→21:23)
[2021-04-14] MEDS: BENZONATATE 100 MG CAPSULE PO SCH ×3 (08:55→21:24)
[2021-04-14] MEDS: dexAMETHasone 6 MG in SYRINGE 0 ML IV SCH (08:56)
[2021-04-14] MEDS: INSULIN GLARGINE SOLOSTAR 100 UNITS/ML 3 ML PEN SC SCH (08:56)
[2021-04-14] MEDS: INSULIN HUMAN NPH SC SCH (08:58)
--- NOTE | 2021-04-14 11:23 | XRay Report ---
SINGLE VIEW CHEST CLINICAL HISTORY: Hypoxia. Covid pneumonia. FINDINGS: An AP, portable, upright chest radiograph is compared to study dated 04/13/2021. The cardio mediastinal silhouette is unremarkable. Multifocal airspace consolidation is again seen throughout zackery th lungs. This is unchanged to modestly worsened as compared to yesterday. No large pleural effusion or pneumothorax is identified. The bony thorax is grossly intact. IMPRESSION: Multifocal airspace consolidation is consistent with the reported history of a viral pneu monia. This is unchanged to modestly worsened as compared to yesterday. Radiographic follow-up to res olution is recommended. ACT 112: Negative or not required by law. Electronically signed by: Maxx Torres M.D. 04/14/2021 11:21 AM
[2021-04-14] MEDS ORDERED: OPTIRAY 320 125ml IV ONE (13:57)
--- NOTE | 2021-04-14 14:20 | CT Scan Report ---
CT ANGIOGRAM OF THE CHEST CLINICAL HISTORY: Hypoxia. Covid pneumonia. COMPARISON STUDY: Chest x-ray dated 04/14/2021. TECHNIQUE: Following the IV administration of 120 cc of Optiray 320, CT angiogram of the chest was pe rformed from the upper abdomen to the thoracic inlet utilizing the pulmonary embolus protocol. Images are reviewed in the axial, sagittal, and coronal planes. 3-D MIPS images are created and assessed. I V contrast was administered without complication. A dose lowering technique was utilized adhering to the principles of ALARA. The examination is degraded by motion artifact. CT DOSE: 411.09 mGycm FINDINGS: Thyroid: Imaged portions of the thyroid gland are normal in size and attenuation. Thoracic aorta: The thoracic aorta is normal in caliber and demonstrates standard 3-vessel arch anato my. No dissection is seen. Pulmonary vasculature: The pulmonary trunk is normal in caliber. There is thrombus within the right l ower lobe pulmonary artery. This extends into segmental and subsegmental branches. There are numerous segmental and subsegmental pulmonary emboli within branches of the right upper and right middle lobe pulmonary arteries. Segmental and subsegmental pulmonary emboli are also seen within branches of the left upper and left lower lobe pulmonary arteries. The main pulmonary arteries are clear. Heart: The heart is normal in size and without pericardial effusion. Lungs and pleural spaces: Evaluation of the lung parenchyma is degraded by motion artifact. Subpleura l predominant multifocal airspace consolidation is seen throughout both lungs, greatest/most confluen t at the lung bases. There are trace pleural effusions. The trachea and central airways are clear. Mediastinum: There is no mediastinal lymphadenopathy. Alyssa: Clear. Axillae: There is no axillary lymphadenopathy. Upper abdomen: There is a small hiatal hernia. A 1.9 cm renal cyst is noted in the right upper pole. Skeletal structures: No lytic or blastic bony lesions are seen. IMPRESSION: 1. Motion compromised examination. 2. Bilateral pulmonary emboli as above. 3. Extensive multifocal airspace consolidation is consistent with the reported history of viral pneum onia. Radiographic follow-up to resolution is recommended. 4. Trace pleural effusions. 5. Additional findings as above. ACT 112: Negative or not required by law. Electronically signed by: Maxx Torres M.D. 04/14/2021 2:19 PM
[2021-04-14 15:45] LABS: Hematocrit (blood only) 37.8 % (42-52); Hemoglobin 12.9 g/dL (14.0-18.0); Mean Corpuscular Hemoglobin 29.8 pg (25-34); Mean Corpuscular Volume 87.3 fL (80-100); Mean Platelet Volume 11.2 fL (7.4-10.4); Platelet Count 109 K/uL (130-400); RDW Coefficient of Variation 14.5 % (11.5-14.5); Red Blood Count 4.33 M/uL (4.7-6.1); White Blood Count 15.92 K/uL (4.8-10.8)
[2021-04-14 15:51] LABS: Mean Corpuscular Hgb Conc 34.1 g/dL (32-36)
[2021-04-14 15:55] LABS: INR 1.6 (0.9-1.1); Partial Thromboplastin Ratio 1.2; Partial Thromboplastin Time 30.4 Seconds (21.0-31.0); Prothrombin Time 15.9 Seconds (9.0-12.0)
[2021-04-14 16:05] LABS: Basophils # (auto) 0.02 K/uL (0-0.2); Basophils % (auto) 0.1 %; Echinocytes 1+; Immature Granulocytes # (auto) 0.09 K/uL (0.00-0.02); Immature Granulocytes % (auto) 0.6 %; Lymphocytes # (auto) 0.68 K/uL (1.2-3.4); Lymphocytes % (auto) 4.3 %; Monocytes # (auto) 0.43 K/uL (0.11-0.59); Monocytes % (auto) 2.7 %; Neutrophils % (auto) 92.3 %; Schistocytes 1+
[2021-04-14] MEDS: HEPARIN SODIUM/DEXTROSE 25,000 UNITS/500 ML BAG IV SCH (16:29)
[2021-04-14] MEDS ORDERED: HEPARIN SOD (PORCINE) 1000 UNIT/ML IV ONE (16:30)
[2021-04-14] MEDS: Heparin IV Adult Wt-Based Standard WITH Bolus Protocol IV SCH ×2 (16:41→16:42)
--- NOTE | 2021-04-14 16:53 | Hospitalist Progress Note ---
Date of Service April 14, 2021 Assessment & Plan (1) Pneumonia due to COVID-19 virus: (2) Hyperglycemia due to type 2 diabetes mellitus: (3) Hyponatremia: (4) HTN (hypertension): (5) HLD (hyperlipidemia): (6) CAD (coronary artery disease): (7) DVT prophylaxis: Plan: 55-year-old gentleman with a past medical history of NIDDM 2, HLD, HTN who presented 04/12 to ED, referred from his outpatient providers office for worsening shortness of breath and hypoxia in the setting of being diagnosed with COVID-19. Is being managed for the following: #. Covid pneumonia #. 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 Prior to presentation, reports feeling feverish, body aches, decreased appetite, diarrhea, shortness of breath. Patient was saturating at 79% on room air in the ER. Vaccine status/month: Not vaccinated; S/S : A week ago TIME CYCLE OPERATOR Tested Positive: On the week of arrival Admitting pro-Dharmesh: n/a, no signs of infection, clear sputum with cough. Admitting imaging: CXR suggestive of viral pneumonia. Clinically, patient on 30 L HF nasal cannula oxygen, with occasional dry coughs - same level, reports improving appetite/diarrhea. Denies any chest pain. Encourage every hour incentive spirometer/flutter valve/self proning as able Tessalon Perles and Mucinex for cough BNP: 161; Strict I's and O's; as needed IV Lasix; monitor BMP Monitor LFT daily when on remdesivir; sliding scale and glycemic pharmacy if needed when on steroid. c/w Dexamethasone 04/12 and Remdesivir 04/12. #. Pulmonary embolism Patient has increased oxygen requirement from 5L to 30 - 40 L between 04/13- 04/14. 04/14 CTA chest positive for PE Likely secondary to Covid. Patient started on heparin drip 04/14 Will need to be transitioned to oral agents warfarin versus NOAC, will discuss with the patient. #. Hyponatremia Admitting sodium level of 129, corrected to around 135 Likely secondary to poor appetite preceding admission Resolved. #. DM type II Blood glucose elevated at presentation, A1c of 12.3 at presentation. Monitor blood glucose AC at bedtime, on sliding scale with long-acting We will get life educator and glycemic pharmacy for Mx/recommendation. #. Other chronic medical condition: HTN/HLD Resume home meds as appropriate. Full code Heparin Drip Disposition: Continue to monitor, uncertain at this time. 04/14: Patient was asked if I need to update any of his family members, he said that he has been talking with his mother over the phone and will need only when he is not able to. 04/14: Discussed about the prognosis of Covid and the expected plan of care if he were to require increasing amounts of oxygen. Patient was given the facts. Patient would like to do everything including intubation. (8) Pulmonary embolism: Admission and Anticipated Discharge Date Admission Date: April 12, 2021 Subjective Patient was lying prone in bed, on 30 L nasal cannula oxygen, NAD, no new acute events overnight. Patient reports same level of cough but reports improving diarrhea and appetite. He denies any chest pain or increased shortness of breath from yesterday. He denies any headache/dizziness/chills/chest pain/palpitation/other review of symptoms. Since his oxygen requirement increased from 4 to 5 L yesterday to 30 to 40 L today, discussion about initiating baricitinib was held at bedside and patient was given pamphlet on baricitinib. Because of the concern of increasing oxygen requirement with down obvious worsening in CXR, CTA chest was sent and planned prior to initiating baricitinib if patient agrees to. CTA chest came out positive for pulmonary embolism. Patient started on heparin drip. Physical Exam Physical Exam: GENERAL: Alert and oriented x3. NAD, on 30L HF NC. HEENT: No pallor, no icterus. Pupils equal, round and reactive to light. Oral mucosa moist. NECK: No JVD, no neck masses. HEART: S1 and S2 heard. Regular rate and rhythm. No murmur, no gallop. RESPIRATORY SYSTEM: Normal AP diameter. No accessory muscle use. No wheezing, no crackles. Decreased Breath sounds ABDOMEN: Soft, bowel sounds present, nontender, no distention. CENTRAL NERVOUS SYSTEM: No facial droop. Speech is clear. Obeys simple commands. Moves extremities. EXTREMITIES: No edema, no erythema seen. Results & Data Results & Data ([facility]) Vital Signs (Past 12 Hours) Vital Signs Temp Pulse Resp BP Pulse Ox 04/14/21 15:42 36.3 C L 67 18 135/78 99 04/14/21 15:00 62 18 92 04/14/21 13:50 97 04/14/21 11:18 36.3 C L 57 L 20 148/88 H 96 04/14/21 10:37 61 18 90 04/14/21 07:18 76 18 95 04/14/21 07:02 36.9 C 60 20 138/77 96 (1) Hyperglycemia due to type 2 diabetes mellitus Diabetes mellitus terminal make up operator insulin use: without terminal make up operator use Qualified Code(s): E11.65 - Type 2 diabetes mellitus with hyperglycemia
[2021-04-14] MEDS: CARBOHYDRATES FOR HYPOGLYCEMIA PO PRN (16:54)
[2021-04-14] MEDS ORDERED: methylPREDNISolone 40 MG in SYRINGE 0 ML IV ONE (21:00)
[2021-04-14] MEDS ORDERED: ALBUMIN 25% 100 mL 25 GM/100 ML VIAL IV ONE (21:00)
[2021-04-14] MEDS: REMDESIVIR 100 MG in SODIUM CHLORIDE 0.9% 230 ML IV SCH (21:22)
[2021-04-14 21:49] LABS: Base Excess ABG -2.1 mEq/L (-9-1.8); HCO3 ABG 20 mmol/L (19-24); Oxygen Saturation ABG 92.8 % (90-95); PCO2 ABG 27 mmHg (35-46); PO2 ABG 59 mmHg (80-95); pH ABG 7.48 (7.35-7.45)
[2021-04-14 21:50] LABS: Allen Test Pos (Pos)
[2021-04-14 22:09] LABS: BUN Creatinine Ratio 23.3 (10-20); Calcium 7.9 mg/dl (8.5-10.1); Creatinine Clr Calc Pharmacy 62.8 ml/min; Est GFR (African American) 90.1 ml/min; Est GFR (Non-African American) 77.7 ml/min; Magnesium 2.2 mg/dl (1.8-2.4); Potassium 3.7 mmol/L (3.5-5.1)
[2021-04-14] MEDS: SODIUM CHLORIDE 0.9% 10ML FLUSH IV SCH (23:00)
[2021-04-14 23:55] LABS: Partial Thromboplastin Ratio 4.1
[2021-04-15] MEDS: INSULIN GLARGINE SOLOSTAR 100 UNITS/ML 3 ML PEN SC SCH ×2 (00:22→08:50)
[2021-04-15 06:40] LABS: Hematocrit (blood only) 37.7 % (42-52); Hemoglobin 12.5 g/dL (14.0-18.0); Mean Corpuscular Hgb Conc 33.2 g/dL (32-36); Mean Corpuscular Volume 87.5 fL (80-100); Mean Platelet Volume 12.7 fL (7.4-10.4); Platelet Count 177 K/uL (130-400); RDW Coefficient of Variation 14.8 % (11.5-14.5); RDW Standard Deviation 47.9 fL (36.4-46.3); Red Blood Count 4.31 M/uL (4.7-6.1); White Blood Count 15.02 K/uL (4.8-10.8)
[2021-04-15 06:50] LABS: Partial Thromboplastin Time 53.3 Seconds (21.0-31.0)
[2021-04-15 07:10] LABS: Albumin Globulin Ratio 0.9 (0.9-2); Albumin Level 2.8 gm/dl (3.4-5.0); BUN Creatinine Ratio 21.3 (10-20); Bilirubin,Total 1.4 mg/dl (0.2-1); Calcium 8.2 mg/dl (8.5-10.1); Creatinine Clr Calc Pharmacy 65.9 ml/min; Est GFR (African American) 95.5 ml/min; Est GFR (Non-African American) 82.4 ml/min; Globulin 3.1 gm/dl (2.5-4.0); Potassium 4.3 mmol/L (3.5-5.1); Total Protein 5.9 gm/dl (6.4-8.2)
[2021-04-15] MEDS: ALBUTEROL HFA 8 GM INHALER INH SCH (08:24)
[2021-04-15] MEDS: dexAMETHasone 6 MG in SYRINGE 0 ML IV SCH (08:38)
[2021-04-15] MEDS: BENZONATATE 100 MG CAPSULE PO SCH ×3 (08:39→19:44)
[2021-04-15] MEDS: guaiFENesin 600 MG TABCR PO SCH ×2 (08:39→19:44)
[2021-04-15] MEDS: INSULIN ASPART PER UNIT SC SCH ×4 (08:50→21:04)
[2021-04-15] MEDS: INSULIN HUMAN NPH SC SCH (09:31)
[2021-04-15] MEDS ORDERED: INSULIN HUMAN REGULAR PER UNIT 6 UNITS in SYRINGE 5.94 ML IV ONE (12:30)
--- NOTE | 2021-04-15 12:49 | Pharmacy Report ---
Pharmacy Glycemic Short Note 2 - Date of Service April 15, 2021 - Glycemic Short BSG Results (Last 24 hours): 04/14/21 04/14/21 04/14/21 16:49 16:50 17:13 Glucose POC Glucose 66 L* 63 L* 104 H 04/14/21 04/14/21 04/15/21 20:59 21:36 05:10 Glucose 216 H 299 H POC Glucose 119 H 04/15/21 04/15/21 04/15/21 07:40 07:41 11:42 Glucose POC Glucose 321 H* 328 H* 378 H* 04/15/21 11:43 Glucose POC Glucose 353 H* OUTPATIENT ANTIDIABETIC REGIMEN: * METFORMIN 1 GM DAILY, GLYBURIDE 5 MG DAILY * A1C 12.3% 04/13/21 ASSESSMENT: 04/15/21 * BSGs yesterday were [phone] mg/dL and fasting today is 321 mg/dL due to Solu-Medrol 40 mg IV x 1 given last night. * Since yesterday's regimen was almost too aggressive continued current regimen; however lunch BSG was 378 mg/dL. * IV insulin bolus given plus tightened CR for now. Background * Patient admitted with COVID-19, BSGs elevated on admission, reportedly has not been taking oral diabetic medications for at least the last two weeks. * Patient was started on NPH and later an insulin infusion for continued elevated blood glucose * Insulin infusion titrated down overnight and was held for approximately two hours this morning when BSGs were 79-140-148 mg/dL * Transitioned to basal/bolus with additional NPH with steroids. PLAN FOR INPATIENT GLYCEMIC CONTROL: * Hold outpatient oral diabetes medications * Basal insulin * Lantus 10 units SQ BID * NPH 25 units given with dexamethasone to help with steroid induced hyperglycemia * Bolus insulin * NovoLog per scale ACHS or Q6hrs while NPO * Goal Range: Low 110 mg/dL - High 140 mg/dL * Correction Factor: 20 mg/dL/unit * Nutritional / Prandial insulin per carb ratio of 1 unit per 5 grams CHO consumed PLAN FOR DISCHARGE: * tbd
[2021-04-15] MEDS: ACETAMINOPHEN 325 MG TAB PO PRN ×2 (16:06→19:49)
[2021-04-15] MEDS ORDERED: PHARMACY GLYCEMIC MGMT CONSULT PRN (16:08)
--- NOTE | 2021-04-15 16:14 | Hospitalist Progress Note ---
Date of Service April 15, 2021 Assessment & Plan (1) Pneumonia due to COVID-19 virus: (2) Hyperglycemia due to type 2 diabetes mellitus: (3) Hyponatremia: (4) HTN (hypertension): (5) HLD (hyperlipidemia): (6) CAD (coronary artery disease): (7) DVT prophylaxis: Plan: 55-year-old gentleman with a past medical history of NIDDM 2, HLD, HTN who presented 04/12 to ED, referred from his outpatient providers office for worsening shortness of breath and hypoxia in the setting of being diagnosed with COVID-19. Is being managed for the following: #. Covid pneumonia #. 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 Prior to presentation, reports feeling feverish, body aches, decreased appetite, diarrhea, shortness of breath. Patient was saturating at 79% on room air in the ER. Vaccine status/month: Not vaccinated; S/S : A week ago SIGN ERECTOR Tested Positive: On the week of arrival Admitting pro-Dharmesh: 0.41, no signs of infection, clear sputum with cough. Admitting imaging: CXR suggestive of viral pneumonia. Clinically, patient on 40 L HF nasal cannula oxygen, with occasional dry coughs - improving, reports improving appetite/diarrhea. Denies any chest pain. Encourage every hour incentive spirometer/flutter valve/self proning as able Tessalon Perles and Mucinex for cough BNP: 161; Strict I's and O's; as needed IV Lasix; monitor BMP Monitor LFT daily when on remdesivir; sliding scale and glycemic pharmacy if needed when on steroid. c/w Dexamethasone 04/12 and Remdesivir 04/12. #. Pulmonary embolism Patient has increased oxygen requirement from 5L to 30 - 40 L between 04/13- 04/14. 04/14 CTA chest positive for PE Likely secondary to Covid. Patient started on heparin drip 04/14 Discussion about choice of anticoagulation going forward held with patient with benefits and adverse effects of each of them. Patient asked to talk with his mother regarding choice of anticoagulation and she would be better able to help him. I called her mother 04/15 regarding choice of anticoagulation, she is agreeable to Eliquis being sent to pharmacy for cost evaluation and will decide based on that. #. Hyponatremia Admitting sodium level of 129, corrected to around 135 Likely secondary to poor appetite preceding admission Resolved. #. DM type II Blood glucose elevated at presentation, A1c of 12.3 at presentation. Monitor blood glucose AC at bedtime, on sliding scale with long-acting We will get clinical trial educator and glycemic pharmacy for Mx/recommendation. #. Other chronic medical condition: HTN/HLD Resume home meds as appropriate. Full code Heparin Drip Disposition: Continue to monitor, uncertain at this time. 04/14: Patient was asked if I need to update any of his family members, he said that he has been talking with his mother over the phone and will need only when he is not able to. 04/14: Discussed about the prognosis of Covid and the expected plan of care if he were to require increasing amounts of oxygen. Patient was given the facts. Patient would like to do everything including intubation. !06/16: Discussion about choice of oral anticoagulation held with patient and his mother. Plan to send Eliquis for cost evaluation. (8) Pulmonary embolism: Admission and Anticipated Discharge Date Admission Date: April 12, 2021 Subjective Patient sitting up in bed, eating his lunch, on 40 L nasal cannula oxygen, no new acute events overnight. Patient reports feeling better. Patient reports improving cough, and diarrhea. Patient is eating and moving bowels okay. He denies any headache/dizziness/chills/chest pain/palpitation/other review of symptoms. Patient remains on heparin drip. Physical Exam Physical Exam: GENERAL: Alert and oriented x3. NAD, on 40L at 90% HF NC. HEENT: No pallor, no icterus. Pupils equal, round and reactive to light. Oral mucosa moist. NECK: No JVD, no neck masses. HEART: S1 and S2 heard. Regular rate and rhythm. No murmur, no gallop. RESPIRATORY SYSTEM: Normal AP diameter. No accessory muscle use. No wheezing, no crackles. Decreased Breath sounds -- getting better. ABDOMEN: Soft, bowel sounds present, nontender, no distention. CENTRAL NERVOUS SYSTEM: No facial droop. Speech is clear. Obeys simple commands. Moves extremities. EXTREMITIES: No edema, no erythema seen. Results & Data Results & Data ([facility]) Vital Signs (Past 12 Hours) Vital Signs Temp Pulse Resp BP Pulse Ox 04/15/21 15:15 71 18 84 L 04/15/21 11:43 37.0 C 83 22 100/63 93 04/15/21 10:28 101 H 18 91 04/15/21 08:27 108 H 20 04/15/21 08:25 110 H 20 04/15/21 07:03 37.0 C 58 L 21 133/72 96 04/15/21 04:40 36.8 C 73 20 120/68 95 (1) Hyperglycemia due to type 2 diabetes mellitus Diabetes mellitus director long term care insulin use: without director long term care use Qualified Code(s): E11.65 - Type 2 diabetes mellitus with hyperglycemia
[2021-04-15] MEDS: REMDESIVIR 100 MG in SODIUM CHLORIDE 0.9% 230 ML IV SCH (19:49)
[2021-04-15] MEDS: HEPARIN SODIUM/DEXTROSE 25,000 UNITS/500 ML BAG IV SCH (19:49)
[2021-04-15] MEDS: SODIUM CHLORIDE 0.9% 10ML FLUSH IV SCH (20:58)
[2021-04-15] MEDS ORDERED: INSULIN GLARGINE SOLOSTAR 100 UNITS/ML 3 ML PEN SC SCH (21:00)
[2021-04-16] MEDS ORDERED: INSULIN ASPART PER UNIT SC ONE
[2021-04-16 06:54] LABS: Partial Thromboplastin Ratio 2.1
[2021-04-16 07:08] LABS: Partial Thromboplastin Time 54.4 Seconds (21.0-31.0)
[2021-04-16] MEDS: CARBOHYDRATES FOR HYPOGLYCEMIA PO PRN (07:08)
[2021-04-16 07:24] LABS: Albumin Level 2.3 gm/dl (3.4-5.0); Calcium 8.1 mg/dl (8.5-10.1); Creatinine Clr Calc Pharmacy 72.2 ml/min; Est GFR (African American) 106.7 ml/min; Est GFR (Non-African American) 92.1 ml/min; Potassium 3.9 mmol/L (3.5-5.1)
[2021-04-16] MEDS: ALBUTEROL HFA 8 GM INHALER INH SCH (07:26)
[2021-04-16 07:31] LABS: Albumin Globulin Ratio 0.8 (0.9-2); Bilirubin,Total 0.8 mg/dl (0.2-1); Total Protein 5.3 gm/dl (6.4-8.2)
[2021-04-16] MEDS ORDERED: INSULIN GLARGINE SOLOSTAR 100 UNITS/ML 3 ML PEN SC SCH (09:00)
[2021-04-16] MEDS: INSULIN ASPART PER UNIT SC SCH ×4 (09:51→20:46)
[2021-04-16] MEDS: BENZONATATE 100 MG CAPSULE PO SCH ×3 (09:52→19:32)
[2021-04-16] MEDS: dexAMETHasone 6 MG in SYRINGE 0 ML IV SCH (09:52)
[2021-04-16] MEDS: guaiFENesin 600 MG TABCR PO SCH ×2 (09:53→19:32)
[2021-04-16] MEDS: INSULIN HUMAN NPH SC SCH (09:55)
--- NOTE | 2021-04-16 10:20 | Pharmacy Report ---
Pharmacy Glycemic Short Note 2 - Date of Service April 16, 2021 - Glycemic Short BSG Results (Last 24 hours): 04/15/21 04/15/21 04/15/21 11:42 11:43 16:43 Glucose POC Glucose 378 H* 353 H* 279 H 04/15/21 04/15/21 04/16/21 20:16 23:40 05:46 Glucose 61 L POC Glucose 301 H* 142 H 04/16/21 04/16/21 04/16/21 07:05 07:06 07:31 Glucose POC Glucose 61 L* 57 L* 97 OUTPATIENT ANTIDIABETIC REGIMEN: * METFORMIN 1 GM DAILY, GLYBURIDE 5 MG DAILY * A1C 12.3% 04/13/21 ASSESSMENT: 04/16/21: * Pt has received 126 units of insulin over the past 24hrs * 25 units of basal with Lantus * 25 units of NPH for steroid induced hyperglycemia * 76 units of bolus with NovoLog * BSGs significantly elevated 04/15 secondary to additional dose of methylprednisolone given 04/14 @ 2100. * Unfortunately patient with LOW BSG this AM (non-critical low of 61mg/dl). Will dc PM dose of Lantus to prevent AM low tomorrow and loosen CF/CR without additional methylprednisolone on board. Dexamethasone continues at 6mg IV daily. Will continue NPH weight based (0.4 units/kg) to be given simultaneously with dex 04/15/21 * BSGs yesterday were [phone] mg/dL and fasting today is 321 mg/dL due to Solu-Medrol 40 mg IV x 1 given last night. * Since yesterday's regimen was almost too aggressive continued current regimen; however lunch BSG was 378 mg/dL. * IV insulin bolus given plus tightened CR for now. Background * Patient admitted with COVID-19, BSGs elevated on admission, reportedly has not been taking oral diabetic medications for at least the last two weeks. * Patient was started on NPH and later an insulin infusion for continued elevated blood glucose * Insulin infusion titrated down overnight and was held for approximately two hours this morning when BSGs were 79-140-148 mg/dL * Transitioned to basal/bolus with additional NPH with steroids. PLAN FOR INPATIENT GLYCEMIC CONTROL: * Hold outpatient oral diabetes medications * Basal insulin * Lantus 15 units SQ daily in AM only. DC PM dose * NPH 25 units (0.4 units/kg) given with dexamethasone for steroid induced hyperglycemia * Bolus insulin * NovoLog per scale ACHS or Q6hrs while NPO * Goal Range: Low 110 mg/dL - High 140 mg/dL * Correction Factor: 20 mg/dL/unit * Nutritional / Prandial insulin per carb ratio of 1 unit per 5 grams CHO consumed PLAN FOR DISCHARGE: * tbd; pt will likely need insulin at dc based on A1c of 12.3% on 04/13/21
[2021-04-16] MEDS: HEPARIN SODIUM/DEXTROSE 25,000 UNITS/500 ML BAG IV SCH (15:01)
[2021-04-16] MEDS ORDERED: FUROSEMIDE INJ 20 MG/2 ML VIAL IV ONE ×2 (15:29→17:34)
--- NOTE | 2021-04-16 15:35 | Hospitalist Progress Note ---
Date of Service April 16, 2021 Assessment & Plan (1) Pneumonia due to COVID-19 virus: (2) Hyperglycemia due to type 2 diabetes mellitus: (3) Hyponatremia: (4) HTN (hypertension): (5) HLD (hyperlipidemia): (6) CAD (coronary artery disease): (7) DVT prophylaxis: Plan: 55-year-old gentleman with a past medical history of NIDDM 2, HLD, HTN who presented 04/12 to ED, referred from his outpatient providers office for worsening shortness of breath and hypoxia in the setting of being diagnosed with COVID-19. Is being managed for the following: #. Covid pneumonia #. 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 Prior to presentation, reports feeling feverish, body aches, decreased appetite, diarrhea, shortness of breath. Patient was saturating at 79% on room air in the ER. Vaccine status/month: Not vaccinated; S/S : A week ago DISTRICT ENGINEER Tested Positive: On the week of arrival Admitting pro-Dharmesh: 0.41, no signs of infection, clear sputum with cough. Admitting imaging: CXR suggestive of viral pneumonia. Clinically, patient on 45 L HF nasal cannula oxygen, with occasional dry coughs - improving, reports improving appetite/diarrhea. Denies any chest pain. Encourage every hour incentive spirometer/flutter valve/self proning as able Tessalon Perles and Mucinex for cough BNP: 161; Strict I's and O's; as needed IV Lasix; monitor BMP Monitor LFT daily when on remdesivir; sliding scale and glycemic pharmacy if needed when on steroid. c/w Dexamethasone 04/12 and Remdesivir 04/12. #. Pulmonary embolism Patient has increased oxygen requirement from 5L to 30 - 40 L between 04/13- 04/14. 04/14 CTA chest positive for PE Likely secondary to Covid. Patient started on heparin drip 04/14 Followed up with the patient and his mother regarding cost of Eliquis which is 60 dollars for a month supply, they are okay with the cost. Will put the patient on Eliquis when appropriate. #. Hyponatremia Admitting sodium level of 129, corrected to around 135 Likely secondary to poor appetite preceding admission Resolved. #. DM type II Blood glucose elevated at presentation, A1c of 12.3 at presentation. Monitor blood glucose AC at bedtime, on sliding scale with long-acting We will get school vocational educator and glycemic pharmacy for Mx/recommendation. #. Other chronic medical condition: HTN/HLD Resume home meds as appropriate. Full code Heparin Drip Disposition: Continue to monitor, uncertain at this time. 04/14: Patient was asked if I need to update any of his family members, he said that he has been talking with his mother over the phone and will need only when he is not able to. 04/14: Discussed about the prognosis of Covid and the expected plan of care if he were to require increasing amounts of oxygen. Patient was given the facts. Patient would like to do everything including intubation. !06/16: Discussion about choice of oral anticoagulation held with patient and his mother. Plan to send Eliquis for cost evaluation. 04/16: Discussed about the cost of eliquis with the patient and his mother, it cost 60 dollars a month, they are agreeable to the cost. Also updated patient's mother on the current status of the patient. (8) Pulmonary embolism: Admission and Anticipated Discharge Date Admission Date: April 12, 2021 Subjective Patient was sitting up in bed, eating his breakfast, NAD, no new acute events overnight, patient feels better, was on 40 L oxygen at 85%. Patient reports eating and moving bowels okay. Patient reports minimal cough. Patient denies any fever/headache/chills/chest pain/palpitation/other review of symptoms. Physical Exam Physical Exam: GENERAL: Alert and oriented x3. NAD, on 45L at 85% HF NC. HEENT: No pallor, no icterus. Pupils equal, round and reactive to light. Oral mucosa moist. NECK: No JVD, no neck masses. HEART: S1 and S2 heard. Regular rate and rhythm. No murmur, no gallop. RESPIRATORY SYSTEM: Normal AP diameter. No accessory muscle use. No wheezing, no crackles. Decreased Breath sounds. ABDOMEN: Soft, bowel sounds present, nontender, no distention. CENTRAL NERVOUS SYSTEM: No facial droop. Speech is clear. Obeys simple commands. Moves extremities. EXTREMITIES: No edema, no erythema seen. Urinary catheter in situ with yellow urine collection. Results & Data Results & Data ([facility]) Vital Signs (Past 12 Hours) Vital Signs Temp Pulse Pulse Resp BP BP Pulse Ox 04/16/21 15:18 66 15 95 04/16/21 12:56 99 04/16/21 12:04 20 96 04/16/21 11:51 36.5 C 81 21 92/55 L 94 04/16/21 10:56 86 18 97 04/16/21 10:14 62 04/16/21 07:57 37.0 C 60 21 132/81 95 04/16/21 07:28 96 H 18 88 L 04/16/21 03:49 37.0 C 76 16 129/71 96 (1) Hyperglycemia due to type 2 diabetes mellitus Diabetes mellitus chcf insulin use: without chcf use Qualified Code(s): E11.65 - Type 2 diabetes mellitus with hyperglycemia
[2021-04-16] MEDS: REMDESIVIR 100 MG in SODIUM CHLORIDE 0.9% 230 ML IV SCH (19:32)
[2021-04-16] MEDS: SODIUM CHLORIDE 0.9% 10ML FLUSH IV SCH (20:46)
[2021-04-17] MEDS: HEPARIN SODIUM/DEXTROSE 25,000 UNITS/500 ML BAG IV SCH (00:28)
[2021-04-17 06:23] LABS: Hematocrit (blood only) 39.2 % (42-52); Hemoglobin 12.9 g/dL (14.0-18.0); Mean Corpuscular Hemoglobin 29.6 pg (25-34); Mean Corpuscular Hgb Conc 32.9 g/dL (32-36); Mean Corpuscular Volume 89.9 fL (80-100); Mean Platelet Volume 11.3 fL (7.4-10.4); Platelet Count 179 K/uL (130-400); RDW Coefficient of Variation 14.8 % (11.5-14.5); RDW Standard Deviation 48.9 fL (36.4-46.3); Red Blood Count 4.36 M/uL (4.7-6.1); White Blood Count 11.82 K/uL (4.8-10.8)
[2021-04-17 06:24] LABS: Partial Thromboplastin Ratio 2.1
[2021-04-17 06:42] LABS: Partial Thromboplastin Time 54.4 Seconds (21.0-31.0)
[2021-04-17 06:48] LABS: Albumin Globulin Ratio 0.7 (0.9-2); Albumin Level 2.1 gm/dl (3.4-5.0); BUN Creatinine Ratio 24.3 (10-20); Bilirubin,Total 0.8 mg/dl (0.2-1); Creatinine Clr Calc Pharmacy 68.5 ml/min; Est GFR (African American) 100.2 ml/min; Est GFR (Non-African American) 86.4 ml/min; Globulin 2.9 gm/dl (2.5-4.0); Potassium 3.9 mmol/L (3.5-5.1)
[2021-04-17] MEDS: ALBUTEROL HFA 8 GM INHALER INH SCH ×2 (07:45→07:49)
[2021-04-17] MEDS: dexAMETHasone 6 MG in SYRINGE 0 ML IV SCH (09:17)
[2021-04-17] MEDS: BENZONATATE 100 MG CAPSULE PO SCH ×3 (09:17→20:24)
[2021-04-17] MEDS: guaiFENesin 600 MG TABCR PO SCH ×2 (09:23→20:23)
[2021-04-17] MEDS: INSULIN ASPART PER UNIT SC SCH ×4 (09:28→21:45)
[2021-04-17] MEDS: INSULIN HUMAN NPH SC SCH (09:29)
--- NOTE | 2021-04-17 10:45 | Pharmacy Report ---
Pharmacy Glycemic Short Note 2 - Date of Service April 17, 2021 - Glycemic Short BSG Results (Last 24 hours): 04/16/21 04/16/21 04/16/21 11:42 16:14 19:48 Glucose POC Glucose 228 H 143 H 102 H 04/17/21 04/17/21 05:36 07:15 Glucose 102 H POC Glucose 74 OUTPATIENT ANTIDIABETIC REGIMEN: * METFORMIN 1 GM DAILY, GLYBURIDE 5 MG DAILY * A1C 12.3% 04/13/21 ASSESSMENT: 04/17/21 * Stressors stable * AM fasting BSG still below goal and near-hypoglyceamia despite reduction in Lantus by 10 units yesterday. Will hold today, and may either increase NPH or add back Lantus tomorrow if needed * Lunch BSG persistently elevated - will tighten CHO ratio at breakfast 04/16/21: * Pt has received 126 units of insulin over the past 24hrs * 25 units of basal with Lantus * 25 units of NPH for steroid induced hyperglycemia * 76 units of bolus with NovoLog * BSGs significantly elevated 04/15 secondary to additional dose of methylprednisolone given 04/14 @ 2100. * Unfortunately patient with LOW BSG this AM (non-critical low of 61mg/dl). Will dc PM dose of Lantus to prevent AM low tomorrow and loosen CF/CR without additional methylprednisolone on board. Dexamethasone continues at 6mg IV daily. Will continue NPH weight based (0.4 units/kg) to be given simultaneously with dex 04/15/21 * BSGs yesterday were [phone] mg/dL and fasting today is 321 mg/dL due to Solu-Medrol 40 mg IV x 1 given last night. * Since yesterday's regimen was almost too aggressive continued current regimen; however lunch BSG was 378 mg/dL. * IV insulin bolus given plus tightened CR for now. Background * Patient admitted with COVID-19, BSGs elevated on admission, reportedly has not been taking oral diabetic medications for at least the last two weeks. * Patient was started on NPH and later an insulin infusion for continued elevated blood glucose * Insulin infusion titrated down overnight and was held for approximately two hours this morning when BSGs were 79-140-148 mg/dL * Transitioned to basal/bolus with additional NPH with steroids. PLAN FOR INPATIENT GLYCEMIC CONTROL: * Hold outpatient oral diabetes medications * Basal insulin - discontinue Lantus * Stop Lantus * NPH 25 units (0.4 units/kg) given with dexamethasone for steroid induced hyperglycemia * Bolus insulin - tighten breakfast CHO ratio * NovoLog per scale ACHS or Q6hrs while NPO * Goal Range: Low 110 mg/dL - High 140 mg/dL * Correction Factor: 20 mg/dL/unit * Carb ratio: 4 g CHO/unit with breakfast, 5 g CHO/unit with lunch, dinner, bedtime PLAN FOR DISCHARGE: * tbd; pt will likely need insulin at dc based on A1c of 12.3% on 04/13/21
--- NOTE | 2021-04-17 11:24 | Hospitalist Progress Note ---
Date of Service April 17, 2021 Assessment & Plan (1) Pneumonia due to COVID-19 virus: (2) Hyperglycemia due to type 2 diabetes mellitus: (3) Hyponatremia: (4) HTN (hypertension): (5) HLD (hyperlipidemia): (6) CAD (coronary artery disease): (7) DVT prophylaxis: Plan: 55-year-old gentleman with a past medical history of NIDDM 2, HLD, HTN who presented 04/12 to ED, referred from his outpatient providers office for worsening shortness of breath and hypoxia in the setting of being diagnosed with COVID-19. Is being managed for the following: #. Covid pneumonia #. 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 Prior to presentation, reports feeling feverish, body aches, decreased appetite, diarrhea, shortness of breath. Patient was saturating at 79% on room air in the ER. Vaccine status/month: Not vaccinated; S/S : A week ago ESCROW AGENT Tested Positive: On the week of arrival Admitting pro-Dharmesh: 0.41, no signs of infection, clear sputum with cough. Admitting imaging: CXR suggestive of viral pneumonia. Clinically, patient on 40 L HF nasal cannula oxygen, with occasional dry coughs in AM, reports eating OK. Denies any chest pain. Encourage every hour incentive spirometer/flutter valve/self proning as able Tessalon Perles and Mucinex for cough BNP: 161; Strict I's and O's; as needed IV Lasix; monitor BMP Monitor LFT daily when on remdesivir; sliding scale and glycemic pharmacy if needed when on steroid. c/w Dexamethasone 04/12 and s/p Remdesivir 04/12-. #. Pulmonary embolism Patient has increased oxygen requirement from 5L to 30 - 40 L between 04/13- 04/14. 04/14 CTA chest positive for PE Likely secondary to Covid. Patient was pretty much active prior to this admission. Patient started on heparin drip 04/14 Followed up with the patient and his mother regarding cost of Eliquis which is 60 dollars for a month supply, they are okay with the cost. Stop heparin drip today, start Eliquis from today evening at 10 mg twice a day for 7 days followed by 5 mg twice a day. 04/17/2021--> Eliquis 10 mg twice daily started from the evening. 04/25/2021 --> Eliquis 5 mg twice daily should be started from the evening. Patient will benefit from coagulation work-up as an outpatient after 2 to 3 months of this event. #. Hyponatremia Admitting sodium level of 129, corrected to around 135 Likely secondary to poor appetite preceding admission Resolved. #. DM type II Blood glucose elevated at presentation, A1c of 12.3 at presentation. Monitor blood glucose AC at bedtime, on sliding scale with long-acting We will get outreach educator and glycemic pharmacy for Mx/recommendation. #. Other chronic medical condition: HTN/HLD Resume home meds as appropriate. Full code Heparin Drip Disposition: Continue to monitor, uncertain at this time. 04/14: Patient was asked if I need to update any of his family members, he said that he has been talking with his mother over the phone and will need only when he is not able to. 04/14: Discussed about the prognosis of Covid and the expected plan of care if he were to require increasing amounts of oxygen. Patient was given the facts. Patient would like to do everything including intubation. !06/16: Discussion about choice of oral anticoagulation held with patient and his mother. Plan to send Eliquis for cost evaluation. 04/16: Discussed about the cost of eliquis with the patient and his mother, it cost 60 dollars a month, they are agreeable to the cost. Also updated patient's mother on the current status of the patient. (8) Pulmonary embolism: Admission and Anticipated Discharge Date Admission Date: April 12, 2021 Subjective Patient was lying in bed, prone, NAD, no new acute events overnight, patient feels better, is on 40 L oxygen at 100%. Patient reports eating and moving bowels okay. Patient reports minimal cough. Patient denies any fever/headache/chills/chest pain/palpitation/other review of symptoms. Physical Exam Physical Exam: GENERAL: Alert and oriented x3. NAD, on 40L at 100% HF NC. HEENT: No pallor, no icterus. Pupils equal, round and reactive to light. Oral mucosa moist. NECK: No JVD, no neck masses. HEART: S1 and S2 heard. Regular rate and rhythm. No murmur, no gallop. RESPIRATORY SYSTEM: Normal AP diameter. No accessory muscle use. No wheezing, no crackles. Decreased Breath sounds. ABDOMEN: Soft, bowel sounds present, nontender, no distention. CENTRAL NERVOUS SYSTEM: No facial droop. Speech is clear. Obeys simple commands. Moves extremities. EXTREMITIES: No edema, no erythema seen. Urinary catheter in situ with yellow urine collection. Results & Data Results & Data ([facility]) Vital Signs (Past 12 Hours) Vital Signs Temp Pulse Pulse Resp BP Pulse Ox 04/17/21 11:13 36.9 C 78 20 100/55 L 92 04/17/21 08:00 61 04/17/21 07:49 65 20 91 04/17/21 07:45 22 89 L 04/17/21 07:37 61 04/17/21 07:09 37.1 C 74 20 114/61 91 04/17/21 03:45 37.0 C 73 22 101/70 94 04/17/21 03:22 61 18 94 04/17/21 01:06 57 L 14 96 04/16/21 23:21 36.7 C 63 21 94/61 L 96 (1) Hyperglycemia due to type 2 diabetes mellitus Diabetes mellitus penitentiary insulin use: without penitentiary use Qualified Code(s): E11.65 - Type 2 diabetes mellitus with hyperglycemia
[2021-04-17] MEDS: APIXABAN 5 MG TABLET PO SCH (20:24)
[2021-04-18 07:45] LABS: Albumin Globulin Ratio 0.7 (0.9-2); Albumin Level 2.1 gm/dl (3.4-5.0); BUN Creatinine Ratio 26.8 (10-20); Bilirubin,Total 0.6 mg/dl (0.2-1); Calcium 8.4 mg/dl (8.5-10.1); Creatinine Clr Calc Pharmacy 61.8 ml/min; Est GFR (African American) 101.4 ml/min; Est GFR (Non-African American) 87.5 ml/min; Globulin 3.1 gm/dl (2.5-4.0); Potassium 4.8 mmol/L (3.5-5.1); Total Protein 5.2 gm/dl (6.4-8.2)
[2021-04-18] MEDS: ALBUTEROL HFA 8 GM INHALER INH SCH (08:22)
[2021-04-18] MEDS: INSULIN HUMAN NPH SC SCH (08:30)
[2021-04-18] MEDS: INSULIN ASPART PER UNIT SC SCH ×4 (08:30→21:42)
[2021-04-18] MEDS: dexAMETHasone 6 MG in SYRINGE 0 ML IV SCH (08:44)
[2021-04-18] MEDS: BENZONATATE 100 MG CAPSULE PO SCH ×3 (08:44→19:44)
[2021-04-18] MEDS: APIXABAN 5 MG TABLET PO SCH ×2 (08:45→19:44)
[2021-04-18] MEDS: guaiFENesin 600 MG TABCR PO SCH ×2 (08:45→19:45)
[2021-04-18] MEDS ORDERED: INSULIN GLARGINE SOLOSTAR 100 UNITS/ML 3 ML PEN SC SCH (09:00)
--- NOTE | 2021-04-18 12:02 | Pharmacy Report ---
Pharmacy Glycemic Short Note 2 - Date of Service April 18, 2021 - Glycemic Short BSG Results (Last 24 hours): 04/17/21 04/17/21 04/18/21 16:51 20:17 06:43 Glucose 210 H POC Glucose 110 H 158 H 04/18/21 04/18/21 07:28 11:37 Glucose POC Glucose 272 H 178 H OUTPATIENT ANTIDIABETIC REGIMEN: * METFORMIN 1 GM DAILY, GLYBURIDE 5 MG DAILY * A1C 12.3% 04/13/21 ASSESSMENT: 04/18/21 * Stressors stable * AM fasting with notable increase after Lantus reduced from 15 to 0 units yesterday. However, Per RN (Loki) - patient ate kim crackers, peanut butter, and popcicle last night, which was uncovered with Novolog. OK to add back a lower dose of Lantus than what caused the near hypoglycemic event yesterday * Post-prandial BSG's yesterday adequate. No change to Novolog 04/17/21 * Stressors stable * AM fasting BSG still below goal and near-hypoglyceamia despite reduction in Lantus by 10 units yesterday. Will hold today, and may either increase NPH or add back Lantus tomorrow if needed * Lunch BSG persistently elevated - will tighten CHO ratio at breakfast 04/16/21: * Pt has received 126 units of insulin over the past 24hrs * 25 units of basal with Lantus * 25 units of NPH for steroid induced hyperglycemia * 76 units of bolus with NovoLog * BSGs significantly elevated 04/15 secondary to additional dose of methylprednisolone given 04/14 @ 2100. * Unfortunately patient with LOW BSG this AM (non-critical low of 61mg/dl). Will dc PM dose of Lantus to prevent AM low tomorrow and loosen CF/CR without additional methylprednisolone on board. Dexamethasone continues at 6mg IV daily. Will continue NPH weight based (0.4 units/kg) to be given simultaneously with dex Background * Patient admitted with COVID-19, BSGs elevated on admission, reportedly has not been taking oral diabetic medications for at least the last two weeks. * Patient was started on NPH and later an insulin infusion for continued elevated blood glucose * Insulin infusion titrated down overnight and was held for approximately two hours this morning when BSGs were 79-140-148 mg/dL * Transitioned to basal/bolus with additional NPH with steroids. PLAN FOR INPATIENT GLYCEMIC CONTROL: * Hold outpatient oral diabetes medications * Basal insulin - resume low-dose Lantus * Lantus 10 units SC x1 * NPH 25 units (0.4 units/kg) given with dexamethasone for steroid induced hyperglycemia * Bolus insulin - no change * NovoLog per scale ACHS or Q6hrs while NPO * Goal Range: Low 110 mg/dL - High 140 mg/dL * Correction Factor: 20 mg/dL/unit * Carb ratio: 4 g CHO/unit with breakfast, 5 g CHO/unit with lunch, dinner, bedtime PLAN FOR DISCHARGE: * tbd; pt will likely need insulin at dc based on A1c of 12.3% on 04/13/21
[2021-04-18] MEDS ORDERED: SODIUM CHLORIDE 0.9% 1000ML 500 ML IV ONE (16:33)
--- NOTE | 2021-04-18 18:33 | Hospitalist Progress Note ---
Date of Service April 18, 2021 Assessment & Plan (1) Pneumonia due to COVID-19 virus: (2) Hyperglycemia due to type 2 diabetes mellitus: (3) Hyponatremia: (4) HTN (hypertension): (5) HLD (hyperlipidemia): (6) CAD (coronary artery disease): (7) DVT prophylaxis: Plan: per Dr. Brink's notes with addendum: 55-year-old gentleman with a past medical history of NIDDM 2, HLD, HTN who presented 04/12 to ED, referred from his outpatient providers office for worse alvaro shortness of breath and hypoxia in the setting of being diagnosed with COVID-19. Is being managed for the following: #. Covid pneumonia #. 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 Prior to presentation, reports feeling feverish, body aches, decreased appetite, diarrhea, shortness of breath. Patient was saturating at 79% on room air in the ER. Vaccine status/month: Not vaccinated; S/S : A week ago TARIFF SUPERVISOR Tested Positive: On the week of arrival Admitting pro-Dharmesh: 0.41, no signs of infection, clear sputum with cough. Admitting imaging: CXR suggestive of viral pneumonia. Clinically, patient on 40 L HF nasal cannula oxygen, with occasional dry coughs in AM, reports eating OK. Denies any chest pain. Encourage every hour incentive spirometer/flutter valve/self proning as able Tessalon Perles and Mucinex for cough BNP: 161; Strict I's and O's; as needed IV Lasix; monitor BMP Monitor LFT daily when on remdesivir; sliding scale and glycemic pharmacy if needed when on steroid. c/w Dexamethasone 04/12 and s/p Remdesivir 04/12-. 04/18 was on high flow O2 60%, this evening seen on nasal cannula improving clinically continue Dexamethasone Day 11/04 d/c Lasix, given 500cc IV NSS bolus for hypotension , asymptomatic #. Pulmonary embolism Patient has increased oxygen requirement from 5L to 30 - 40 L between 04/13- 04/14. 04/14 CTA chest positive for PE Likely secondary to Covid. Patient was pretty much active prior to this admission. Patient started on heparin drip 12/18 Followed up with the patient and his mother regarding cost of Eliquis which is 60 dollars for a month supply, they are okay with the cost. Stop heparin drip today, start Eliquis from today evening at 10 mg twice a day for 7 days followed by 5 mg twice a day. 04/17/2021--> Eliquis 10 mg twice daily started from the evening. 04/25/2021 --> Eliquis 5 mg twice daily should be started from the evening. Patient will benefit from coagulation work-up as an outpatient after 2 to 3 months of this event. 04/18 currently on Eliquis 04/17/2021--> Eliquis 10 mg twice daily started from the evening. 04/25/2021 --> Eliquis 5 mg twice daily should be started from the evening. tolerating well so gar #. Hyponatremia Admitting sodium level of 129, corrected to around 135 Likely secondary to poor appetite preceding admission Resolved. #. DM type II Blood glucose elevated at presentation, A1c of 12.3 at presentation. Monitor blood glucose AC at bedtime, on sliding scale with long-acting We will get adaptive physical educator and glycemic pharmacy for Mx/recommendation. #. Other chronic medical condition: HTN/HLD Resume home meds as appropriate. Full code Heparin Drip Disposition: Continue to monitor, uncertain at this time. (8) Pulmonary embolism: Admission and Anticipated Discharge Date Admission Date: April 12, 2021 Subjective ff up for covid 19 pneumonia with hypoxic respiratory failure, etc seen resting in chair, comfortable on nasal cannula in good spirits states he continues to feel better overall no active dyspnea on exam no cough, chest pain, leg pain appetites is good no other symptoms Review of Systems Review of Systems: all noted and negative except for above Physical Exam Physical Exam: General- oriented x 3, not in distress, speaks in sentences with no effort or accessory muscle use Eyes- anicteric Neck- no JVD Lungs- mild rales at the bases, no wheezing Heart- normal rate, regular rhythm; no murmurs Abdomen- normal bowel sounds, nondistended, soft, nontender Extremities- no pretibial edema, no calf tenderness Neuro- alert, oriented x 3; no gross focal neurologic deficits Skin- warm & dry Results & Data Results & Data ([facility]) Vital Signs (Past 12 Hours) Vital Signs Temp Pulse Pulse Resp BP BP Pulse Ox 04/18/21 17:25 97/58 L 04/18/21 17:00 93 04/18/21 16:57 36.5 C 73 20 81/52 L 97 04/18/21 16:00 98 04/18/21 15:00 83 04/18/21 14:19 93 H 20 87 L 04/18/21 14:17 93 04/18/21 12:47 36.4 C 73 24 97/59 L 92 04/18/21 10:17 20 91 04/18/21 08:42 36.9 C 60 24 113/71 95 04/18/21 08:21 82 20 92 04/18/21 07:19 60 all noted and reviewed including below (1) Hyperglycemia due to type 2 diabetes mellitus Diabetes mellitus long term care social worker insulin use: without long term care social worker use Qualified Code(s): E11.65 - Type 2 diabetes mellitus with hyperglycemia
[2021-04-18] MEDS: ACETAMINOPHEN 325 MG TAB PO PRN (19:47)
[2021-04-19] MEDS: ALBUTEROL HFA 8 GM INHALER INH SCH (07:18)
[2021-04-19] MEDS: INSULIN ASPART PER UNIT SC SCH ×4 (08:36→21:22)
[2021-04-19] MEDS: INSULIN HUMAN NPH SC SCH (08:36)
[2021-04-19] MEDS: dexAMETHasone 6 MG in SYRINGE 0 ML IV SCH (08:46)
[2021-04-19] MEDS: guaiFENesin 600 MG TABCR PO SCH ×2 (08:47→21:20)
[2021-04-19] MEDS: APIXABAN 5 MG TABLET PO SCH ×2 (08:47→21:20)
[2021-04-19] MEDS: BENZONATATE 100 MG CAPSULE PO SCH ×3 (08:47→21:19)
--- NOTE | 2021-04-19 10:30 | Hospitalist Progress Note ---
Date of Service April 19, 2021 Assessment & Plan (1) Pneumonia due to COVID-19 virus: (2) Hyperglycemia due to type 2 diabetes mellitus: (3) Hyponatremia: (4) HTN (hypertension): (5) HLD (hyperlipidemia): (6) CAD (coronary artery disease): (7) DVT prophylaxis: Plan: per Dr. Brink's notes with addendum: 55-year-old gentleman with a past medical history of NIDDM 2, HLD, HTN who presented 04/12 to ED, referred from his outpatient providers office for worse alvaro shortness of breath and hypoxia in the setting of being diagnosed with COVID-19. Is being managed for the following: #. Covid pneumonia #. 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 Prior to presentation, reports feeling feverish, body aches, decreased appetite, diarrhea, shortness of breath. Patient was saturating at 79% on room air in the ER. Vaccine status/month: Not vaccinated; S/S : A week ago PLASTIC FINISHER Tested Positive: On the week of arrival Admitting pro-Dharmesh: 0.41, no signs of infection, clear sputum with cough. Admitting imaging: CXR suggestive of viral pneumonia. Clinically, patient on 40 L HF nasal cannula oxygen, with occasional dry coughs in AM, reports eating OK. Denies any chest pain. Encourage every hour incentive spirometer/flutter valve/self proning as able Tessalon Perles and Mucinex for cough BNP: 161; Strict I's and O's; as needed IV Lasix; monitor BMP Monitor LFT daily when on remdesivir; sliding scale and glycemic pharmacy if needed when on steroid. c/w Dexamethasone 04/12 and s/p Remdesivir 04/12-. 04/19 was on high flow O2 60%, on nasal cannula since yesterday improving clinically continue Dexamethasone Day 12/05 d/c Lasix as BP marginal reinforced proning, IS, FV #. Pulmonary embolism Patient has increased oxygen requirement from 5L to 30 - 40 L between 04/13- 04/14. 04/14 CTA chest positive for PE Likely secondary to Covid. Patient was pretty much active prior to this admission. Patient started on heparin drip 12/18 Followed up with the patient and his mother regarding cost of Eliquis which is 60 dollars for a month supply, they are okay with the cost. Stop heparin drip today, start Eliquis from today evening at 10 mg twice a day for 7 days followed by 5 mg twice a day. 04/17/2021--> Eliquis 10 mg twice daily started from the evening. 04/25/2021 --> Eliquis 5 mg twice daily should be started from the evening. Patient will benefit from coagulation work-up as an outpatient after 2 to 3 months of this event. 04/19 currently on Eliquis 04/17/2021--> Eliquis 10 mg twice daily started from the evening. 04/25/2021 --> Eliquis 5 mg twice daily should be started from the evening. tolerating well so gar #. Hyponatremia Admitting sodium level of 129, corrected to around 135 Likely secondary to poor appetite preceding admission Resolved. #. DM type II Blood glucose elevated at presentation, A1c of 12.3 at presentation. Monitor blood glucose AC at bedtime, on sliding scale with long-acting We will get assistant finance director and glycemic pharmacy for Mx/recommendation. #. Other chronic medical condition: HTN/HLD Resume home meds as appropriate. Full code Heparin Drip Disposition: Continue to monitor, uncertain at this time. (8) Pulmonary embolism: Admission and Anticipated Discharge Date Admission Date: April 12, 2021 Subjective ff up for COVID 19 pneumonia, hypoxic respiratory failure seen sitting up in bed, comfortable in good spirits states he feels about the same as yesterday no cough, chest pain, dizziness, leg pain appetite is good no other symptoms Review of Systems Review of Systems: all noted and negative except for above Physical Exam Physical Exam: General- oriented x 3, not in distress, speaks in sentences with no effort or accessory muscle use Eyes- anicteric Neck- no JVD Lungs- (+) mild rales at the bases Heart- normal rate, regular rhythm; no murmurs Abdomen- normal bowel sounds, nondistended, soft, nontender Extremities- no pretibial edema, no calf tenderness Neuro- alert, oriented x 3; no gross focal neurologic deficits Skin- warm & dry Results & Data Results & Data ([facility]) Vital Signs (Past 12 Hours) Vital Signs Temp Pulse Pulse Resp BP BP Pulse Ox 04/19/21 07:20 36.4 C L 61 20 98/51 L 04/19/21 07:18 73 20 92 04/19/21 04:06 36.4 C L 47 L 20 114/59 L 99 04/19/21 00:00 81 04/18/21 23:28 36.5 C 92 H 20 100/51 L 91 all noted and reviewed including below (1) Hyperglycemia due to type 2 diabetes mellitus Diabetes mellitus detention insulin use: without meterman use Qualified Code(s): E11.65 - Type 2 diabetes mellitus with hyperglycemia
[2021-04-20] MEDS: ALBUTEROL HFA 8 GM INHALER INH SCH (08:49)
[2021-04-20] MEDS ORDERED: INSULIN GLARGINE SOLOSTAR 100 UNITS/ML 3 ML PEN SC SCH (09:00)
[2021-04-20] MEDS: INSULIN ASPART PER UNIT SC SCH ×4 (09:27→21:35)
[2021-04-20] MEDS: INSULIN HUMAN NPH SC SCH (09:28)
[2021-04-20] MEDS: BENZONATATE 100 MG CAPSULE PO SCH ×3 (09:34→21:35)
[2021-04-20] MEDS: dexAMETHasone 6 MG in SYRINGE 0 ML IV SCH (09:34)
[2021-04-20] MEDS: guaiFENesin 600 MG TABCR PO SCH ×2 (09:34→21:34)
[2021-04-20] MEDS: APIXABAN 5 MG TABLET PO SCH ×2 (10:28→21:35)
--- NOTE | 2021-04-20 15:25 | Hospitalist Progress Note ---
Date of Service April 20, 2021 Assessment & Plan (1) Pneumonia due to COVID-19 virus: (2) Hyperglycemia due to type 2 diabetes mellitus: (3) Hyponatremia: (4) HTN (hypertension): (5) HLD (hyperlipidemia): (6) CAD (coronary artery disease): (7) DVT prophylaxis: Plan: per Dr. Brink's notes with addendum: 55-year-old gentleman with a past medical history of NIDDM 2, HLD, HTN who presented 04/12 to ED, referred from his outpatient providers office for worse alvaro shortness of breath and hypoxia in the setting of being diagnosed with COVID-19. Is being managed for the following: #. Covid pneumonia #. 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 Prior to presentation, reports feeling feverish, body aches, decreased appetite, diarrhea, shortness of breath. Patient was saturating at 79% on room air in the ER. Vaccine status/month: Not vaccinated; S/S : A week ago ASSOCIATE ORACLE RETAIL Tested Positive: On the week of arrival Admitting pro-Dharmesh: 0.41, no signs of infection, clear sputum with cough. Admitting imaging: CXR suggestive of viral pneumonia. Clinically, patient on 40 L HF nasal cannula oxygen, with occasional dry coughs in AM, reports eating OK. Denies any chest pain. Encourage every hour incentive spirometer/flutter valve/self proning as able Tessalon Perles and Mucinex for cough BNP: 161; Strict I's and O's; as needed IV Lasix; monitor BMP Monitor LFT daily when on remdesivir; sliding scale and glycemic pharmacy if needed when on steroid. c/w Dexamethasone 04/12 and s/p Remdesivir 04/12-. 04/20 was on high flow O2 60%, on nasal cannula now 3-4 L improving clinically continue Dexamethasone Day 01/05 d/c Lasix as BP marginal reinforced proning, IS, FV #. Pulmonary embolism Patient has increased oxygen requirement from 5L to 30 - 40 L between 04/13- 04/14. 04/14 CTA chest positive for PE Likely secondary to Covid. Patient was pretty much active prior to this admission. Patient started on heparin drip 04/14 Followed up with the patient and his mother regarding cost of Eliquis which is 60 dollars for a month supply, they are okay with the cost. Stop heparin drip today, start Eliquis from today evening at 10 mg twice a day for 7 days followed by 5 mg twice a day. 04/17/2021--> Eliquis 10 mg twice daily started from the evening. 04/25/2021 --> Eliquis 5 mg twice daily should be started from the evening. Patient will benefit from coagulation work-up as an outpatient after 2 to 3 months of this event. 04/20 currently on Eliquis 04/17/2021--> Eliquis 10 mg twice daily started from the evening. 04/25/2021 --> Eliquis 5 mg twice daily should be started from the evening. tolerating well so far #. Hyponatremia Admitting sodium level of 129, corrected to around 135 Likely secondary to poor appetite preceding admission Resolved. #. DM type II Blood glucose elevated at presentation, A1c of 12.3 at presentation. Monitor blood glucose AC at bedtime, on sliding scale with long-acting We will get telehealth nurse educator and glycemic pharmacy for Mx/recommendation. #. Other chronic medical condition: HTN/HLD Resume home meds as appropriate. Full code Heparin Drip Disposition: Continue to monitor, uncertain at this time. (8) Pulmonary embolism: Admission and Anticipated Discharge Date Admission Date: April 12, 2021 Subjective ff up for acute hypoxic respiratory failure, covid 19 pneumonia, etc seen resting in bed, comfortable on 4 L nasal cannula states he continues to feel improved breathing improving no cough no chest pain, palpitations, dizziness no other symptoms Review of Systems Review of Systems: all noted and negative except for above Physical Exam Physical Exam: General- oriented x 3, not in distress, speaks in sentences w ith no effort or accessory muscle use Eyes- anicteric Neck- no JVD Lungs- mild rales at the bases, no wheezing Heart- normal rate, regular rhythm; no murmurs Abdomen- normal bowel sounds, nondistended, soft, nontender Extremities- no pretibial edema, no calf tenderness Neuro- alert, oriented x 3; no gross focal neurologic deficits Skin- warm & dry Results & Data Results & Data ([facility]) Vital Signs (Past 12 Hours) Vital Signs Temp Pulse Pulse Resp BP Pulse Ox 04/20/21 11:00 36.9 C 66 14 110/57 L 92 04/20/21 08:49 75 18 94 04/20/21 08:00 69 04/20/21 07:07 37 C 61 20 113/70 96 04/20/21 03:27 37.0 C 52 L 18 108/57 L 97 all noted and reviewed including below (1) Hyperglycemia due to type 2 diabetes mellitus Diabetes mellitus custodial insulin use: without custodial use Qualified Code(s): E11.65 - Type 2 diabetes mellitus with hyperglycemia
[2021-04-21] MEDS: ALBUTEROL HFA 8 GM INHALER INH SCH (08:25)
[2021-04-21] MEDS: ACETAMINOPHEN 325 MG TAB PO PRN (08:37)
[2021-04-21] MEDS: BENZONATATE 100 MG CAPSULE PO SCH ×3 (08:37→21:33)
[2021-04-21] MEDS: APIXABAN 5 MG TABLET PO SCH ×2 (08:37→21:32)
[2021-04-21] MEDS: guaiFENesin 600 MG TABCR PO SCH ×2 (08:37→21:33)
[2021-04-21] MEDS: INSULIN GLARGINE SOLOSTAR 100 UNITS/ML 3 ML PEN SC SCH (08:38)
[2021-04-21] MEDS ORDERED: SODIUM CHLORIDE 0.9% 1000ML 1,000 ML IV SCH (08:45)
[2021-04-21] MEDS: INSULIN HUMAN NPH SC SCH (08:46)
[2021-04-21] MEDS: dexAMETHasone 6 MG in SYRINGE 0 ML IV SCH (08:46)
[2021-04-21] MEDS: INSULIN ASPART PER UNIT SC SCH ×4 (08:47→21:45)
--- NOTE | 2021-04-21 14:49 | Hospitalist Progress Note ---
Date of Service April 21, 2021 Assessment & Plan (1) Pneumonia due to COVID-19 virus: (2) Hyperglycemia due to type 2 diabetes mellitus: (3) Hyponatremia: (4) HTN (hypertension): (5) HLD (hyperlipidemia): (6) CAD (coronary artery disease): (7) DVT prophylaxis: Plan: per Dr. Brink's notes with addendum: 55-year-old gentleman with a past medical history of NIDDM 2, HLD, HTN who presented 04/12 to ED, referred from his outpatient providers office for worse alvaro shortness of breath and hypoxia in the setting of being diagnosed with COVID-19. Is being managed for the following: #. Covid pneumonia #. 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 Prior to presentation, reports feeling feverish, body aches, decreased appetite, diarrhea, shortness of breath. Patient was saturating at 79% on room air in the ER. Vaccine status/month: Not vaccinated; S/S : A week ago CLERGY MEMBER Tested Positive: On the week of arrival Admitting pro-Dharmesh: 0.41, no signs of infection, clear sputum with cough. Admitting imaging: CXR suggestive of viral pneumonia. Clinically, patient on 40 L HF nasal cannula oxygen, with occasional dry coughs in AM, reports eating OK. Denies any chest pain. Encourage every hour incentive spirometer/flutter valve/self proning as able Tessalon Perles and Mucinex for cough BNP: 161; Strict I's and O's; as needed IV Lasix; monitor BMP Monitor LFT daily when on remdesivir; sliding scale and glycemic pharmacy if needed when on steroid. c/w Dexamethasone 04/12 and s/p Remdesivir 04/12-. 04/21 was on high flow O2 60%, weaned off gradually, now on nasal cannula now 2 L improving clinically today Dexamethasone Day 02/04 d/c Lasix as BP marginal reinforced proning, IS, FV 2 step exercise test: will need 2 L with ambulation #. Pulmonary embolism Patient has increased oxygen requirement from 5L to 30 - 40 L between 04/13- 04/14. 04/14 CTA chest positive for PE Likely secondary to Covid. Patient was pretty much active prior to this admission. Patient started on heparin drip 04/14 Followed up with the patient and his mother regarding cost of Eliquis which is 60 dollars for a month supply, they are okay with the cost. Stop heparin drip today, start Eliquis from today evening at 10 mg twice a day for 7 days followed by 5 mg twice a day. 04/17/2021--> Eliquis 10 mg twice daily started from the evening. 04/25/2021 --> Eliquis 5 mg twice daily should be started from the evening. Patient will benefit from coagulation work-up as an outpatient after 2 to 3 months of this event. 04/20 currently on Eliquis 04/17/2021--> Eliquis 10 mg twice daily started from the evening. 04/25/2021 --> Eliquis 5 mg twice daily should be started from the evening. tolerating well so far #. Hyponatremia Admitting sodium level of 129, corrected to around 135 Likely secondary to poor appetite preceding admission Resolved. #. DM type II Blood glucose elevated at presentation, A1c of 12.3 at presentation. Monitor blood glucose AC at bedtime, on sliding scale with long-acting We will get parent educator and glycemic pharmacy for Mx/recommendation. #. Other chronic medical condition: HTN/HLD Resume home meds as appropriate. Full code Heparin Drip Disposition: anticipate d/c home tomorrow with home o2 (8) Pulmonary embolism: Admission and Anticipated Discharge Date Admission Date: April 12, 2021 Subjective Follow-up for COVID-19 pneumonia, acute hypoxic respiratory failure, etc. seen resting in bed, comfortable, on 2 L o2 via nasal cannula states he feels fine overall feeling better no chest pain dyspnea, dizziness no leg pain ambulating with no problems no other symptoms Review of Systems Review of Systems: all noted and negative except for above Physical Exam Physical Exam: General- oriented x 3, not in distress, speaks in sentences with no effort or accessory muscle use Eyes- anicteric Neck- no JVD Lungs- minimal rales at the bases, no wheezing Heart- normal rate, regular rhythm; no murmurs Abdomen- normal bowel sounds, nondistended, soft, nontender Extremities- no pretibial edema, no calf tenderness Neuro- alert, oriented x 3; no gross focal neurologic deficits Skin- warm & dry Results & Data Results & Data ([place]) Vital Signs (Past 12 Hours) Vital Signs Temp Pulse Pulse Pulse Pulse Pulse Pulse 04/21/21 13:57 95 H 82 97 H 83 74 04/21/21 12:20 36.4 C L 78 04/21/21 08:25 81 04/21/21 07:48 36.9 C 75 Resp Resp Resp Resp Resp Resp BP 04/21/21 13:57 19 18 19 18 17 04/21/21 12:20 20 98/59 L 04/21/21 08:25 17 04/21/21 07:48 20 98/58 L Pulse Ox Pulse Ox Pulse Ox Pulse Ox Pulse Ox Pulse Ox 04/21/21 13:57 87 L 90 86 L 92 90 04/21/21 12:20 92 04/21/21 08:25 90 04/21/21 07:48 93 all noted and reviewed including below (1) Hyperglycemia due to type 2 diabetes mellitus Diabetes mellitus moth exterminator insulin use: without mcc use Qualified Code(s): E11.65 - Type 2 diabetes mellitus with hyperglycemia
[2021-04-21] MEDS ORDERED: SODIUM CHLORIDE 0.9% 1000ML 500 ML IV ONE ×2 (15:57→17:24)
[2021-04-21] MEDS: SODIUM CHLORIDE 0.9% 1000ML 1,000 ML IV SCH (17:11)
[2021-04-22] MEDS: SODIUM CHLORIDE 0.9% 1000ML 1,000 ML IV SCH (00:37)
[2021-04-22] MEDS: APIXABAN 5 MG TABLET PO SCH (09:00)
[2021-04-22] MEDS: guaiFENesin 600 MG TABCR PO SCH (09:01)
[2021-04-22] MEDS: BENZONATATE 100 MG CAPSULE PO SCH (09:01)
[2021-04-22] MEDS: INSULIN ASPART PER UNIT SC SCH ×2 (09:39→12:48)
[2021-04-22] MEDS: INSULIN GLARGINE SOLOSTAR 100 UNITS/ML 3 ML PEN SC SCH (09:40)
[2021-04-22] MEDS: ALBUTEROL HFA 8 GM INHALER INH SCH (11:45)
--- NOTE | 2021-04-22 12:43 | Hospitalist Progress Note ---
Date of Service April 22, 2021 Assessment & Plan (1) Pneumonia due to COVID-19 virus: (2) Hyperglycemia due to type 2 diabetes mellitus: (3) Hyponatremia: (4) HTN (hypertension): (5) HLD (hyperlipidemia): (6) CAD (coronary artery disease): (7) DVT prophylaxis: Plan: per Dr. Brink's notes with addendum: 55-year-old gentleman with a past medical history of NIDDM 2, HLD, HTN who presented 04/12 to ED, referred from his outpatient providers office for worse alvaro shortness of breath and hypoxia in the setting of being diagnosed with COVID-19. Is being managed for the following: #. Covid pneumonia #. 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 Prior to presentation, reports feeling feverish, body aches, decreased appetite, diarrhea, shortness of breath. Patient was saturating at 79% on room air in the ER. Vaccine status/month: Not vaccinated; S/S : A week ago SUPERVISOR ROAD ADMINISTRATOR Tested Positive: On the week of arrival Admitting pro-Dharmesh: 0.41, no signs of infection, clear sputum with cough. Admitting imaging: CXR suggestive of viral pneumonia. Clinically, patient on 40 L HF nasal cannula oxygen, with occasional dry coughs in AM, reports eating OK. Denies any chest pain. Encourage every hour incentive spirometer/flutter valve/self proning as able Tessalon Perles and Mucinex for cough BNP: 161; Strict I's and O's; as needed IV Lasix; monitor BMP Monitor LFT daily when on remdesivir; sliding scale and glycemic pharmacy if needed when on steroid. c/w Dexamethasone 04/12 and s/p Remdesivir 04/12-. was on high flow O2 60%, weaned off gradually, now on nasal cannula now 2 L improved clinically completed Dexamethasone Day 02/04 was also given Lasix IV with good diuresis 2 step exercise test: will need 2 L oxygen via NC with ambulation continue with Incentive Spirometry, Flutter valve BP on the lower side but patient asymptomatic 93/60 on repeat BP encouraged to drink at least 8 glasses of water/day #. Pulmonary embolism Patient has increased oxygen requirement from 5L to 30 - 40 L between 04/13- 04/14. 04/14 CTA chest positive for PE Likely secondary to Covid. Patient was pretty much active prior to this admission. Patient started on heparin drip 04/14 Followed up with the patient and his mother regarding cost of Eliquis which is 60 dollars for a month supply, they are okay with the cost. Stop heparin drip today, start Eliquis from today evening at 10 mg twice a day for 7 days followed by 5 mg twice a day. 04/17/2021--> Eliquis 10 mg twice daily started from the evening. 04/25/2021 --> Eliquis 5 mg twice daily should be started from the evening. Patient will benefit from coagulation work-up as an outpatient after 2 to 3 months of this event. 04/20 currently on Eliquis 04/17/2021--> Eliquis 10 mg twice daily started from the evening. 04/25/2021 --> Eliquis 5 mg twice daily should be started from the evening. tolerating well so far #. Hyponatremia Admitting sodium level of 129, corrected to around 135 Likely secondary to poor appetite preceding admission Resolved. #. DM type II Blood glucose elevated at presentation, A1c of 12.3 at presentation. discharge plan: start Lantus 15 units daily in AM continue Metformin and Gliburide #. Other chronic medical condition: HTN/HLD Resume home meds as appropriate. Full code Disposition: d/c home with home O2 ff up with PCP in 1 week (8) Pulmonary embolism: Admission and Anticipated Discharge Date Admission Date: April 12, 2021 Subjective ff up for covid 19 pneumonia, hypoxic respiratory failure, etc seen resting in bedside chair, comfortable on 2 L o2 via NC in good spirits states he feels much better overall no problems with breathing on 2 L NC ambulates in the room with no problems, no dizziness, syncope/presyncope no chest pain, dyspnea, palpitations no other symptoms states he is ready and would like to be discharged today Review of Systems Review of Systems: all noted and negative except for above Physical Exam Physical Exam: General- oriented x 3, not in distress, speaks in sentences with no effort or accessory muscle use Eyes- anicteric Neck- no JVD Lungs- faint intermittent rales at the bases, no wheezing good air entry bilaterally Heart- normal rate, regular rhythm; no murmurs Abdomen- normal bowel sounds, nondistended, soft, nontender Extremities- no pretibial edema, no calf tenderness Neuro- alert, oriented x 3; no gross focal neurologic deficits Skin- warm & dry Results & Data Results & Data ([facility]) Vital Signs (Past 12 Hours) Vital Signs Temp Pulse Resp BP BP Pulse Ox 04/22/21 11:49 36.9 C 68 20 88/54 L 92 04/22/21 11:46 82 18 90 04/22/21 07:47 36.8 C 68 20 120/68 97 04/22/21 03:47 36.9 C 64 18 107/62 99 all noted and reviewed including below (1) Hyperglycemia due to type 2 diabetes mellitus Diabetes mellitus terminal superintendent insulin use: without terminal superintendent use Qualified Code(s): E11.65 - Type 2 diabetes mellitus with hyperglycemia
--- NOTE | 2021-04-22 13:50 | Discharge Summary ---
Date of Service April 22, 2021 Admission HPI Per Admitting Provider 55-year-old gentleman with a past medical history of NIDDM 2 who presents emergency department referred from his outpatient providers office for worsening shortness of breath and hypoxia in the setting of being diagnosed with COVID- 19. 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 Reports feeling feverish, body aches, nausea. He denies diarrhea. He is a non-smoker. He is not vaccinated for COVID-19. He did get his flu vaccine last week prior to the onset of his symptoms and after that got symptoms of flu. In the ER he was 79% on room air and tachypneic in the upper 20s. O2 saturation did improve to the low mid 90s on oxygen mask. Patient appears clinically dry. He was found to have a sodium of 128 which corrects to 135 and a bicarbonate of 20. His blood sugar was 459. He was given Tylenol albuterol dexamethasone and 2 L of fluid in the ER. Patient notes nausea and vomiting for couple days. Patient did not have an appetite for days, and loss senses of taste and smell. Patient at work was also positive for Covid. He was not taking his blood sugar medications for 2 weeks. Past medical historyType 2 diabetes, Asthma, CAD c Stent, HTN, HLD Past surgical historyHeart Stent. 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, single, No T/D/Alcohol Family historyFather c Heart Disease, CABG, Mother Healthy, Brother c DM, Sister healthy Meds-Lisinopril, and as below Admission Exam (Per Admitting) Constitutional Gen-AAO x 3, NAD, Afebrile Head-NCAT, EOMI, PERRLA, Anicteric Sclera, No Posterior Pharyngeal Erythema Neck-Supple, No JVD, No Thyromegaly, No Masses, No LAD, No Bruits Lungs-Clear to Auscultation Bilaterally, No Rales, No Rhonchi, No Wheezing, No Crepitus Chest-No S4, +S1, +S2, No S3, No Murmurs, No Rubs, No Gallops, No Ectopy Abdomen-Soft, Bowel Sounds Present, Non Tender, Non Distended, No Hepatomegaly, No Splenomegaly, No Palpable Masses, No Rebound, No Rigidity, No Guarding Musculoskeletal-Full Range of Motion Bilaterally, No CVAT Extremities-No Cyanosis, No Clubbing, No Edema Nuero-Cranial Nerves II-XII grossly intact, Motor WNL, DTRs WNL, Strength WNL, Non Focal Psych-Normal Mood Discharge Data Consultations 04/12/21 17:08 ED Decision to Admit Stat Procedures Performed CT ANGIOGRAM OF THE CHEST CLINICAL HISTORY: Hypoxia. Covid pneumonia. COMPARISON STUDY: Chest x-ray dated 04/14/2021. TECHNIQUE: Following the IV administration of 120 cc of Optiray 320, CT rosa ogram of the chest was performed from the upper abdomen to the thoracic inlet utilizing the pulmonary embolus protocol. Images are reviewed in the axial, sagittal, and coronal planes. 3-D MIPS images are created and assessed. IV contrast was administered without complication. A dose lowering technique was utilized adhering to the principles of ALARA. The examination is degraded by motion artifact. CT DOSE: 411.09 mGycm FINDINGS: Thyroid: Imaged portions of the thyroid gland are normal in size and attenuation. Thoracic aorta: The thoracic aorta is normal in caliber and demonstrates standar d 3-vessel arch anatomy. No dissection is seen. Pulmonary vasculature: The pulmonary trunk is normal in caliber. There is thrombus within the right lower lobe pulmonary artery. This extends into segm ental and subsegmental branches. There are numerous segmental and subsegmental pulmonary emboli within branches of the right upper and right middle lobe pulmonary arteries. Segmental and subsegmental pulmonary emboli are also seen within branches of the left upper and left lower lobe pulmonary arteries. The main pulmonary arteries are clear. Heart: The heart is normal in size and without pericardial effusion. Lungs and pleural spaces: Evaluation of the lung parenchyma is degraded by motion artifact. Subpleural predominant multifocal airspace consolidation is seen throughout both lungs, greatest/most confluent at the lung bases. There are trace pleural effusions. The trachea and central airways are clear. Mediastinum: There is no mediastinal lymphadenopathy. Alyssa: Clear. Axillae: There is no axillary lymphadenopathy. Upper abdomen: There is a small hiatal hernia. A 1.9 cm renal cyst is noted in the right upper pole. Skeletal structures: No lytic or blastic bony lesions are seen. IMPRESSION: 1. Motion compromised examination. 2. Bilateral pulmonary emboli as above. 3. Extensive multifocal airspace consolidation is consistent with the reported history of viral pneumonia. Radiographic follow-up to resolution is recommended. 4. Trace pleural effusions. 5. Additional findings as above. ACT 112: Negative or not required by law. Electronically signed by: Maxx Torres M.D. 04/14/2021 2:19 PM Diabetes Follow Up Diabetes Follow Up: Diabetes Follow-up Needed for HgbA1c >9% Hospital Course (1) Pneumonia due to COVID-19 virus: (2) Hyperglycemia due to type 2 diabetes mellitus: (3) Hyponatremia: (4) HTN (hypertension): (5) HLD (hyperlipidemia): (6) CAD (coronary artery disease): (7) DVT prophylaxis: per Dr. Brink's notes with addendum: 55-year-old gentleman with a past medical history of NIDDM 2, HLD, HTN who presented 04/12 to ED, referred from his outpatient providers office for worse alvaro shortness of breath and hypoxia in the setting of being diagnosed with COVID-19. Is being managed for the following: #. Covid pneumonia #. 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 Prior to presentation, reports feeling feverish, body aches, decreased appetite, diarrhea, shortness of breath. Patient was saturating at 79% on room air in the ER. Vaccine status/month: Not vaccinated; S/S : A week ago [employer] Tested Positive: On the week of arrival Admitting pro-Dharmesh: 0.41, no signs of infection, clear sputum with cough. Admitting imaging: CXR suggestive of viral pneumonia. was on high flow O2 60%, weaned off gradually, now on nasal cannula now 2 L improved clinically completed Dexamethasone Day 10 and Remdesivir x 5 days was also given Lasix IV with good diuresis 2 step exercise test: will need 2 L oxygen via NC with ambulation continue with Incentive Spirometry, Flutter valve BP on the lower side but patient asymptomatic 93/60 on repeat BP encouraged to drink at least 8 glasses of water/day #. Acute, Bilateral Pulmonary embolism Patient has increased oxygen requirement from 5L to 30 - 40 L between 04/13- 04/14. 04/14 CTA chest positive for bilateraly PE Likely secondary to Covid. Patient was pretty much active prior to this admission. Patient started on heparin drip 04/14 Followed up with the patient and his mother regarding cost of Eliquis which is 60 dollars for a month supply, they are okay with the cost. Stop heparin drip today, start Eliquis from today evening at 10 mg twice a day for 7 days followed by 5 mg twice a day. 04/17/2021--> Eliquis 10 mg twice daily started from the evening. 04/25/2021 --> Eliquis 5 mg twice daily should be started from the evening. Patient will benefit from coagulation work-up as an outpatient after 2 to 3 months of this event. 04/21 currently on Eliquis 04/17/2021--> Eliquis 10 mg twice daily started from the evening. 04/25/2021 --> Eliquis 5 mg twice daily should be started from the evening. continue to ff up as outpatient #Abnormal CT chest findings There is a small hiatal hernia. A 1.9 cm renal cyst is noted in the right upper pole. - Please refer to full report in the Ordered Studies section above - Further work up, management, and ff up as outpatient #. Hyponatremia Admitting sodium level of 129, corrected to around 135 Likely secondary to poor appetite preceding admission Resolved. #. DM type II Blood glucose elevated at presentation, A1c of 12.3 at presentation. discharge plan: start Lantus 15 units daily in AM continue Metformin and Gliburide #. Other chronic medical condition: HTN/HLD hold Lisinopril and Metoprolol as BP on the lower side ff up with PCP in 1 week Full code Disposition: d/c home with home O2 ff up with PCP in 1 week (8) Pulmonary embolism:
== END 2021-04-22 15:15 | disposition home health service (06) | DRG 177 ==
LOC: ED 14:38 → 2E 17:20 → SUATTDRO 17:20 → 2E 20:31